=== PATIENT | female | born 1995 | race Caucasian/White ===

== ENCOUNTER 2017-02-10 22:15 | Emergency (ER) | payer MEDICAID ==
[~2017-02-10] VITALS: Ht 157.5 cm; Wt 100.0 kg
[~2017-02-10 22:15] MED LIST: ADVAIR DISKUS 51 DSK IH; ALBUTEROL0.09 MG/A4 IH; ALBUTEROL2.5 MG/3 M IH; ANTIBIOTIC; ANTIBIOTIC O500 U/GM TOP; CIPRO 500MG TA500 MG PO; COLACE 100100 MG/CAP PO; LATUDA80 MG PO; LITHIUM 60600 MG/CAP PO; METFORMIN500 MG PO; MINIPRESS2 MG PO; NAPROSYN500 MG PO; ORTHO TRI-CYCLE1 TA2 PO; PEPCID 20MG TAB20 MG PO; PERPHENAZINE16 M1 PO; PERPHENAZINE4 M1 PO; PREVACID 30MG30 M1 PO; PRILOSEC40 M1 PO; PROZAC40 M1 PO; PROZAC40 MG PO; RISPERDAL1 MG PO; SINGULAIR10 MG PO; SYNTHROID0.05 MG PO; TRILEPTAL600 M1 PO; TYLENOL 500MG500 MG PO; VISTARIL50 M1 PO; VISTARIL50 MG PO; ZOFRAN4 M1 PO; [UNRECOGNIZED DRUG - OTHER] PO
[2017-02-10] MEDS ORDERED: PTU (22:46)
[2017-02-10] MEDS ORDERED: INVEGA SUSTENNA39 MG (22:47)
[2017-02-10] MEDS ORDERED: MALTREXONE (22:48)
[2017-02-10] MEDS ORDERED: BACTRIM DS TAB1 EACH PO (23:53)
[2017-02-11 00:14] VITALS: BP 133/88
== END 2017-02-11 00:07 | disposition home or self-care (01) ==
LOC: ED 22:15
DX: N30.00 Acute cystitis without hematuria (principal); G89.29 Other chronic pain; E05.00 Thyrotoxicosis with diffuse goiter without thyrotoxic crisis or storm; F43.10 Post-traumatic stress disorder, unspecified; F32.9 Major depressive disorder, single episode, unspecified; F90.9 Attention-deficit hyperactivity disorder, unspecified type; K21.9 Gastro-esophageal reflux disease without esophagitis; J45.909 Unspecified asthma, uncomplicated; F20.9 Schizophrenia, unspecified; F17.200 Nicotine dependence, unspecified, uncomplicated; T50.906A Underdosing of unspecified drugs, medicaments and biological substances, initial encounter; Z91.138 Patient's unintentional underdosing of medication regimen for other reason; F42.9 Obsessive-compulsive disorder, unspecified

== ENCOUNTER 2017-02-21 15:52 | Emergency (ER) | payer MEDICAID ==
[~2017-02-21] VITALS: Ht 160 cm; Wt 104.5 kg
[~2017-02-21 15:52] MED LIST changes: +BACTRIM DS TAB1 EACH PO; +INVEGA SUSTENNA39 MG; +MALTREXONE; +PTU
[2017-02-21] MEDS ORDERED: COREG 6.256.25 MG/TA PO (16:03)
[2017-02-21 22:47] VITALS: BP 131/70
== END 2017-02-21 22:47 | disposition home or self-care (01) ==
LOC: ED 15:52
DX: R45.851 Suicidal ideations (principal); F43.10 Post-traumatic stress disorder, unspecified; F60.9 Personality disorder, unspecified; F31.9 Bipolar disorder, unspecified; F29 Unspecified psychosis not due to a substance or known physiological condition; I51.9 Heart disease, unspecified; R00.0 Tachycardia, unspecified

== ENCOUNTER 2017-02-22 14:37 | Emergency (ER) | payer MEDICAID ==
[~2017-02-22] VITALS: Ht 157.5 cm; Wt 104.5 kg
[~2017-02-22 14:37] MED LIST changes: +COREG 6.256.25 MG/TA PO
[2017-02-23 10:18] VITALS: BP 172/69
== END 2017-02-23 10:22 | disposition home or self-care (01) ==
LOC: ED 14:37
DX: T39.1X2A Poisoning by 4-Aminophenol derivatives, intentional self-harm, initial encounter (principal); L50.0 Allergic urticaria; F31.9 Bipolar disorder, unspecified; F43.10 Post-traumatic stress disorder, unspecified; F60.9 Personality disorder, unspecified
CPT/HCPCS: J0132; J0171; J1040; J2550; J2920

== ENCOUNTER 2017-02-24 21:35 | Emergency (ER) | payer MEDICAID ==
[~2017-02-24] VITALS: Ht 157.5 cm; Wt 104.5 kg
[2017-02-24 22:20] VITALS: BP 135/73
== END 2017-02-24 22:20 | disposition home or self-care (01) ==
LOC: ED 21:35
DX: S43.402A Unspecified sprain of left shoulder joint, initial encounter (principal); W01.10XA Fall on same level from slipping, tripping and stumbling with subsequent striking against unspecified object, initial encounter; Y92.009 Unspecified place in unspecified non-institutional (private) residence as the place of occurrence of the external cause

== ENCOUNTER 2017-02-26 12:21 | Emergency (ER) | payer MEDICAID ==
[~2017-02-26] VITALS: Ht 157.5 cm; Wt 104.5 kg
[2017-02-26] MEDS ORDERED: MINIPRESS2 MG PO (12:31)
[2017-02-26] MEDS ORDERED: COREG 6.256.25 MG/TA PO (12:31)
[2017-02-26] MEDS ORDERED: DESYREL 100MG100 MG PO (12:31)
[2017-02-26] MEDS ORDERED: VISTARIL50 M1 PO (12:32)
[2017-02-27 00:02] VITALS: BP 105/66
== END 2017-02-26 23:55 ==
LOC: ED 12:21
DX: F31.9 Bipolar disorder, unspecified (principal); F20.9 Schizophrenia, unspecified; R45.851 Suicidal ideations; J45.909 Unspecified asthma, uncomplicated; F17.210 Nicotine dependence, cigarettes, uncomplicated; F41.9 Anxiety disorder, unspecified; F43.10 Post-traumatic stress disorder, unspecified
CPT/HCPCS: Q0177

== ENCOUNTER 2017-03-04 15:07 | Emergency (ER) | payer MEDICAID ==
[~2017-03-04] VITALS: Ht 157.5 cm; Wt 104.5 kg
[~2017-03-04 15:07] MED LIST changes: +DESYREL 100MG100 MG PO
[2017-03-04] MEDS ORDERED: REVIA50 MG PO (15:21)
[2017-03-04] MEDS ORDERED: VISTARIL50 M1 PO (15:36)
[2017-03-04] MEDS ORDERED: DEBROX15 ML OT (16:03)
[2017-03-04 18:29] VITALS: BP 112/74
== END 2017-03-04 18:28 | disposition home or self-care (01) ==
LOC: ED 15:07
DX: R45.851 Suicidal ideations (principal); F33.1 Major depressive disorder, recurrent, moderate; H61.22 Impacted cerumen, left ear; F41.9 Anxiety disorder, unspecified; F43.10 Post-traumatic stress disorder, unspecified

== ENCOUNTER 2017-03-10 21:31 | Emergency (ER) | payer MEDICAID ==
[~2017-03-10] VITALS: Ht 157.5 cm; Wt 104.5 kg
[~2017-03-10 21:31] MED LIST changes: +DEBROX15 ML OT; +REVIA50 MG PO
[2017-03-10] MEDS ORDERED: INVEGA6 MG PO (21:44)
[2017-03-10 23:08] VITALS: BP 126/77
== END 2017-03-10 23:08 | disposition home or self-care (01) ==
LOC: ED 21:31
DX: R45.851 Suicidal ideations (principal); F43.10 Post-traumatic stress disorder, unspecified; F32.9 Major depressive disorder, single episode, unspecified

== ENCOUNTER 2017-03-21 16:49 | Emergency (ER) | payer MEDICAID ==
[~2017-03-21] VITALS: Ht 157.5 cm; Wt 104.5 kg
[~2017-03-21 16:49] MED LIST changes: +INVEGA6 MG PO
[2017-03-21 18:58] VITALS: BP 142/99
[2017-03-22] MEDS ORDERED: INVEGA SUSTENN156 MG IM (15:55)
[2017-03-22] MEDS ORDERED: PROPYLTHIOURACI50 M1 PO ×2 (15:56→17:38)
== END 2017-03-21 19:30 | disposition home or self-care (01) ==
LOC: ED 16:49
DX: F43.21 Adjustment disorder with depressed mood (principal); E03.9 Hypothyroidism, unspecified; R00.0 Tachycardia, unspecified; F99 Mental disorder, not otherwise specified; Z91.5 Personal history of self-harm

== ENCOUNTER 2017-03-22 15:38 | Emergency (ER) | payer MEDICAID ==
[~2017-03-22] VITALS: Ht 157.5 cm; Wt 114.5 kg
[2017-03-22] MEDS ORDERED: INVEGA SUSTENN156 MG IM (15:55)
[2017-03-22] MEDS ORDERED: PROPYLTHIOURACI50 M1 PO ×2 (15:56→17:38)
[2017-03-22 17:40] VITALS: BP 146/60
== END 2017-03-22 17:41 | disposition home or self-care (01) ==
LOC: ED 15:38
DX: J45.909 Unspecified asthma, uncomplicated (principal); E05.90 Thyrotoxicosis, unspecified without thyrotoxic crisis or storm; F99 Mental disorder, not otherwise specified; R00.0 Tachycardia, unspecified; T38.2X6A Underdosing of antithyroid drugs, initial encounter; T48.6X6A Underdosing of antiasthmatics, initial encounter; Z91.138 Patient's unintentional underdosing of medication regimen for other reason

== ENCOUNTER 2017-04-09 23:21 | Emergency (ER) | payer MEDICAID ==
[~2017-04-09] VITALS: Ht 157.5 cm; Wt 110.0 kg
[~2017-04-09 23:21] MED LIST changes: +INVEGA SUSTENN156 MG IM; +PROAIR HFA0.09 MG/AC IH; +PROPYLTHIOURACI50 M1 PO
[2017-04-10] MEDS ORDERED: CYCLOBENZAPRINE10 M1 PO (00:35)
[2017-04-10 00:47] VITALS: BP 145/71
== END 2017-04-10 00:47 | disposition home or self-care (01) ==
LOC: ED 23:21
DX: M62.838 Other muscle spasm (principal); M62.830 Muscle spasm of back; W19.XXXA Unspecified fall, initial encounter; F99 Mental disorder, not otherwise specified; E07.9 Disorder of thyroid, unspecified; J45.909 Unspecified asthma, uncomplicated; G89.29 Other chronic pain; F17.210 Nicotine dependence, cigarettes, uncomplicated
CPT/HCPCS: J1885; J2360

== ENCOUNTER 2017-04-12 20:52 | Emergency (ER) | payer MEDICAID ==
[~2017-04-12] VITALS: Ht 160 cm; Wt 110.0 kg
[~2017-04-12 20:52] MED LIST changes: +CYCLOBENZAPRINE10 M1 PO
[2017-04-12] MEDS ORDERED: NORCO 325 MG-51 TA1 PO (21:32)
[2017-04-12 21:57] VITALS: BP 128/68
== END 2017-04-12 21:57 | disposition home or self-care (01) ==
LOC: ED 20:52
DX: M25.562 Pain in left knee (principal); G89.29 Other chronic pain; X50.1XXA Overexertion from prolonged static or awkward postures, initial encounter; Y92.480 Sidewalk as the place of occurrence of the external cause; F41.9 Anxiety disorder, unspecified; F32.9 Major depressive disorder, single episode, unspecified; J45.909 Unspecified asthma, uncomplicated; E05.90 Thyrotoxicosis, unspecified without thyrotoxic crisis or storm
CPT/HCPCS: J1885; L1830

== ENCOUNTER → 2017-04-14 | Outpatient (CLI) | payer MEDICAID ==
[2017-04-12 21:57] VITALS: BP 128/68
[~2017-04-14] MED LIST changes: +NORCO 325 MG-51 TA1 PO
== END ==
LOC: RAD 12:00
DX: R33.8 Other retention of urine (principal); M54.9 Dorsalgia, unspecified

== ENCOUNTER 2017-04-21 16:37 | Emergency (ER) | payer MEDICAID ==
[~2017-04-21] VITALS: Ht 157.5 cm; Wt 109.1 kg
[~2017-04-21 16:37] MED LIST changes: -COREG 25MG25 MG/TAB PO; -PROMETHAZINE12.5 M5 PO; -PROPYLTHIOURACI50 MG PO; -VALIUM 2MG T2 MG/TAB PO; -VISTARIL25 M1 PO
[2017-04-21 18:40] VITALS: BP 119/97
== END 2017-04-21 18:36 | disposition home or self-care (01) ==
LOC: ED 16:37
DX: E86.0 Dehydration (principal); E05.00 Thyrotoxicosis with diffuse goiter without thyrotoxic crisis or storm; R00.0 Tachycardia, unspecified; J45.909 Unspecified asthma, uncomplicated; K21.9 Gastro-esophageal reflux disease without esophagitis; F17.210 Nicotine dependence, cigarettes, uncomplicated; R00.2 Palpitations; Z98.890 Other specified postprocedural states; E28.2 Polycystic ovarian syndrome
CPT/HCPCS: J7030

== ENCOUNTER → 2017-04-21 | Day surgery (SDC) | payer MEDICAID ==
[2017-04-12 21:57] VITALS: BP 128/68
[~2017-04-21] MED LIST changes: +COREG 25MG25 MG/TAB PO; +PROMETHAZINE12.5 M5 PO; +PROPYLTHIOURACI50 MG PO; +VALIUM 2MG T2 MG/TAB PO; +VISTARIL25 M1 PO
== END ==
LOC: MSO
DX: D50.9 Iron deficiency anemia, unspecified (principal); Z83.71 Family history of colonic polyps; I10 Essential (primary) hypertension; J45.909 Unspecified asthma, uncomplicated; K21.9 Gastro-esophageal reflux disease without esophagitis; F43.10 Post-traumatic stress disorder, unspecified; F41.9 Anxiety disorder, unspecified; F31.9 Bipolar disorder, unspecified; E07.9 Disorder of thyroid, unspecified
CPT/HCPCS: 00810; J2550; J3010; J7120

== ENCOUNTER 2017-04-24 01:36 | Emergency (ER) | payer MEDICAID ==
[~2017-04-24] VITALS: Ht 157.5 cm; Wt 109.1 kg
[2017-04-24 03:37] VITALS: BP 144/79
[2017-04-24] MEDS ORDERED: PROMETHAZINE12.5 M5 PO (03:38)
[2017-04-25] MEDS ORDERED: VALIUM 2MG T2 MG/TAB PO (00:56)
== END 2017-04-24 03:43 | disposition home or self-care (01) ==
LOC: ED 01:36
DX: R00.0 Tachycardia, unspecified (principal); E05.90 Thyrotoxicosis, unspecified without thyrotoxic crisis or storm; L74.0 Miliaria rubra; R11.0 Nausea; I10 Essential (primary) hypertension; J45.909 Unspecified asthma, uncomplicated; F41.9 Anxiety disorder, unspecified; E28.2 Polycystic ovarian syndrome; F31.9 Bipolar disorder, unspecified; F17.210 Nicotine dependence, cigarettes, uncomplicated

== ENCOUNTER 2017-04-24 21:33 | Emergency (ER) | payer MEDICAID ==
[~2017-04-24] VITALS: Ht 157.5 cm; Wt 109.1 kg
[~2017-04-24 21:33] MED LIST changes: +PROMETHAZINE12.5 M5 PO
[2017-04-25] MEDS ORDERED: VALIUM 2MG T2 MG/TAB PO (00:56)
[2017-04-25 01:03] VITALS: BP 120/80
== END 2017-04-25 01:03 | disposition home or self-care (01) ==
LOC: ED 21:33
DX: H83.01 Labyrinthitis, right ear (principal); R00.2 Palpitations; E05.00 Thyrotoxicosis with diffuse goiter without thyrotoxic crisis or storm; I10 Essential (primary) hypertension; K21.9 Gastro-esophageal reflux disease without esophagitis; F31.9 Bipolar disorder, unspecified; F41.9 Anxiety disorder, unspecified; E28.2 Polycystic ovarian syndrome; D50.9 Iron deficiency anemia, unspecified; F43.10 Post-traumatic stress disorder, unspecified; J45.909 Unspecified asthma, uncomplicated; F17.210 Nicotine dependence, cigarettes, uncomplicated; R47.9 Unspecified speech disturbances

== ENCOUNTER 2017-04-26 00:44 | Emergency (ER) | payer MEDICAID ==
[~2017-04-26] VITALS: Ht 157.5 cm; Wt 109.1 kg
[~2017-04-26 00:44] MED LIST changes: +VALIUM 2MG T2 MG/TAB PO
[2017-04-26 01:02] VITALS: BP 139/98
== END 2017-04-26 02:19 | disposition home or self-care (01) ==
LOC: ED 00:44
DX: H83.01 Labyrinthitis, right ear (principal); R07.89 Other chest pain; F43.9 Reaction to severe stress, unspecified; I10 Essential (primary) hypertension; F31.9 Bipolar disorder, unspecified; F41.9 Anxiety disorder, unspecified; F43.10 Post-traumatic stress disorder, unspecified; E28.2 Polycystic ovarian syndrome; D50.9 Iron deficiency anemia, unspecified; K21.9 Gastro-esophageal reflux disease without esophagitis; E05.00 Thyrotoxicosis with diffuse goiter without thyrotoxic crisis or storm; Z91.19 Patient's noncompliance with other medical treatment and regimen; F17.200 Nicotine dependence, unspecified, uncomplicated

== ENCOUNTER 2017-04-30 18:52 | Emergency (ER) | payer MEDICAID ==
[~2017-04-30] VITALS: Ht 157.5 cm; Wt 110.9 kg
[2017-04-30] MEDS ORDERED: VISTARIL25 M1 PO (19:04)
[2017-04-30] MEDS ORDERED: COREG 25MG25 MG/TAB PO (19:05)
[2017-04-30] MEDS ORDERED: PROPYLTHIOURACI50 MG PO (19:06)
[2017-04-30] MEDS ORDERED: PROPYLTHIOURACI50 M1 PO ×2 (19:06)
[2017-04-30 20:04] LABS: BASO # 0.1 (0.02-0.10); EOS # 0.5 (0.04-0.40); EOS % 4.7 % (1.0-5.0); HEMOGLOBIN 12.3 g/dL (12.5-16.0); LYMPH# 2.8 (1.50-4.00); MEAN CELL VOLUME 79 fl (78-100); MEAN CORPUSCULAR HEMOGLOBIN 26 pg (27-31); MEAN CORPUSCULAR HGB CONC 32 g/dL (33-37); MEAN PLATELET VOLUME 9.2 fl (7.4-10.4); MONO # 0.8 (0.20-0.80); NEU # 6.5 (1.40-6.50); PLATELET COUNT 427 K/mm3 (130-400); RED BLOOD COUNT 4.79 M/mm3 (4.10-5.30); RED CELL DISTRIBUTION WIDTH 17.8 % (11.5-14.5); WHITE BLOOD COUNT 10.7 K/mm3 (4.8-10.8)
[2017-04-30 20:12] LABS: CLUE CELLS NOT OBSERVED (Not Observd)
[2017-04-30 20:35] VITALS: BP 146/91
== END 2017-04-30 20:35 | disposition home or self-care (01) ==
LOC: ED 18:52
PROVIDERS: Nurse Practitioner Primary Care
DX: N93.9 Abnormal uterine and vaginal bleeding, unspecified (principal); R10.2 Pelvic and perineal pain; I10 Essential (primary) hypertension; E05.90 Thyrotoxicosis, unspecified without thyrotoxic crisis or storm; J45.909 Unspecified asthma, uncomplicated; F99 Mental disorder, not otherwise specified
CPT/HCPCS: J1885; Q0111

== ENCOUNTER 2017-05-03 21:06 | Emergency (ER) | payer MEDICAID ==
[~2017-05-03] VITALS: Ht 157.5 cm; Wt 110.9 kg
[~2017-05-03 21:06] MED LIST changes: +COREG 25MG25 MG/TAB PO; +PROPYLTHIOURACI50 MG PO; +VISTARIL25 M1 PO
[2017-05-03 21:16] VITALS: BP 139/72
[2017-05-03 22:20] LABS: EOS # 0.2 (0.04-0.40); EOS % 2.2 % (1.0-5.0); HEMATOCRIT 38.7 % (37.0-47.0); HEMOGLOBIN 12.7 g/dL (12.5-16.0); LYMPH# 2.5 (1.50-4.00); MEAN CELL VOLUME 79 fl (78-100); MEAN CORPUSCULAR HEMOGLOBIN 26 pg (27-31); MEAN CORPUSCULAR HGB CONC 33 g/dL (33-37); MEAN PLATELET VOLUME 9.4 fl (7.4-10.4); MONO # 0.8 (0.20-0.80); NEU # 6.2 (1.40-6.50); PLATELET COUNT 378 K/mm3 (130-400); RED BLOOD COUNT 4.92 M/mm3 (4.10-5.30); RED CELL DISTRIBUTION WIDTH 17.4 % (11.5-14.5); WHITE BLOOD COUNT 9.7 K/mm3 (4.8-10.8)
[2017-05-03 23:16] LABS: ERYTHROCYTE SEDIMENTATION RATE 25 mm/hr (0-20)
== END 2017-05-04 00:30 | disposition home or self-care (01) ==
LOC: ED 21:06
PROVIDERS: Family Medicine
DX: R51 Headache (principal); L08.82 Omphalitis not of newborn; E05.90 Thyrotoxicosis, unspecified without thyrotoxic crisis or storm; F41.9 Anxiety disorder, unspecified; F31.9 Bipolar disorder, unspecified; F43.10 Post-traumatic stress disorder, unspecified; E28.2 Polycystic ovarian syndrome
CPT/HCPCS: J1885; J2360

== ENCOUNTER 2017-05-11 23:41 | Emergency (ER) | payer MEDICAID ==
[~2017-05-11] VITALS: Ht 157.5 cm; Wt 109.1 kg
[2017-05-12 00:45] LABS: EOS # 0.4 (0.04-0.40); EOS % 3.9 % (1.0-5.0); HEMOGLOBIN 13.1 g/dL (12.5-16.0); LYMPH# 3.7 (1.50-4.00); MEAN CELL VOLUME 79 fl (78-100); MEAN CORPUSCULAR HEMOGLOBIN 26 pg (27-31); MEAN CORPUSCULAR HGB CONC 33 g/dL (33-37); MEAN PLATELET VOLUME 9.4 fl (7.4-10.4); MONO # 0.7 (0.20-0.80); NEU # 4.4 (1.40-6.50); PLATELET COUNT 372 K/mm3 (130-400); RED BLOOD COUNT 5.06 M/mm3 (4.10-5.30); RED CELL DISTRIBUTION WIDTH 16.7 % (11.5-14.5); WHITE BLOOD COUNT 9.3 K/mm3 (4.8-10.8)
[2017-05-12] MEDS ORDERED: KETOROLAC10 MG PO (01:03)
[2017-05-12 01:13] VITALS: BP 147/84
== END 2017-05-12 01:13 | disposition home or self-care (01) ==
LOC: ED 23:41
PROVIDERS: Family Medicine
DX: R07.89 Other chest pain (principal); R05 Cough; R07.1 Chest pain on breathing; E05.90 Thyrotoxicosis, unspecified without thyrotoxic crisis or storm; F99 Mental disorder, not otherwise specified

== ENCOUNTER 2017-05-12 14:35 | Emergency (ER) | payer MEDICAID ==
[~2017-05-12] VITALS: Wt 112.1 kg
[~2017-05-12 14:35] MED LIST changes: +KETOROLAC10 MG PO
[2017-05-12 17:03] VITALS: BP 125/72
== END 2017-05-12 17:07 | disposition home or self-care (01) ==
LOC: ED 14:35
DX: G89.29 Other chronic pain (principal); M54.89 Other dorsalgia; I10 Essential (primary) hypertension; E05.00 Thyrotoxicosis with diffuse goiter without thyrotoxic crisis or storm; F41.9 Anxiety disorder, unspecified; F31.9 Bipolar disorder, unspecified; F43.10 Post-traumatic stress disorder, unspecified; F17.200 Nicotine dependence, unspecified, uncomplicated

== ENCOUNTER → 2017-05-15 | Outpatient (CLI) | payer MEDICAID ==
[2017-05-12 17:03] VITALS: BP 125/72
== END ==
LOC: RAD 08:09
DX: R10.2 Pelvic and perineal pain (principal); N93.9 Abnormal uterine and vaginal bleeding, unspecified; N92.6 Irregular menstruation, unspecified

== ENCOUNTER 2017-06-23 10:26 | Emergency (ER) | payer MEDICAID ==
[~2017-06-23] VITALS: Ht 157.5 cm; Wt 109.1 kg
[2017-06-23] MEDS ORDERED: ZITHROMAX 250M250 MG PO (10:50)
[2017-06-23] MEDS ORDERED: PREDNISONE20 M1 PO (10:50)
[2017-06-23] MEDS ORDERED: IPRATROPIUM BROM3 M1 IH (10:50)
[2017-06-23 11:02] VITALS: BP 127/77
== END 2017-06-23 11:02 | disposition home or self-care (01) ==
LOC: ED 10:26
DX: J20.9 Acute bronchitis, unspecified (principal); F17.200 Nicotine dependence, unspecified, uncomplicated; J45.909 Unspecified asthma, uncomplicated

== ENCOUNTER 2017-06-23 13:09 | Emergency (ER) | payer OTHER ==
[~2017-06-23] VITALS: Wt 115.5 kg
[~2017-06-23 13:09] MED LIST changes: +IPRATROPIUM BROM3 M1 IH; +PREDNISONE20 M1 PO; +ZITHROMAX 250M250 MG PO
[2017-06-23 14:46] VITALS: BP 136/82
== END 2017-06-23 15:12 | disposition home or self-care (01) ==
LOC: ED 13:09
DX: S93.402A Sprain of unspecified ligament of left ankle, initial encounter (principal); S83.91XA Sprain of unspecified site of right knee, initial encounter; X50.1XXA Overexertion from prolonged static or awkward postures, initial encounter; W10.1XXA Fall (on)(from) sidewalk curb, initial encounter; Y92.481 Parking lot as the place of occurrence of the external cause; F17.200 Nicotine dependence, unspecified, uncomplicated; J45.909 Unspecified asthma, uncomplicated; Z88.7 Allergy status to serum and vaccine; Z88.8 Allergy status to other drugs, medicaments and biological substances

== ENCOUNTER 2017-08-14 11:53 | Emergency (ER) | payer MEDICAID ==
[~2017-08-14] VITALS: Ht 160 cm; Wt 116.4 kg
[2017-08-14] MEDS ORDERED: RISPERIDONE1 M2 (11:58)
[2017-08-14] MEDS ORDERED: QUETIAPINE FUMA25 M2 PO (11:58)
[2017-08-14 12:47] LABS: EOS # 0.4 (0.04-0.40); EOS % 3.6 % (1.0-5.0); HEMATOCRIT 41.9 % (37.0-47.0); HEMOGLOBIN 13.5 g/dL (12.5-16.0); LYMPH# 3.1 (1.50-4.00); MEAN CELL VOLUME 83 fl (78-100); MEAN CORPUSCULAR HEMOGLOBIN 27 pg (27-31); MEAN CORPUSCULAR HGB CONC 32 g/dL (33-37); MEAN PLATELET VOLUME 9.4 fl (7.4-10.4); MONO # 0.7 (0.20-0.80); NEU # 7.3 (1.40-6.50); PLATELET COUNT 402 K/mm3 (130-400); RED BLOOD COUNT 5.04 M/mm3 (4.10-5.30); RED CELL DISTRIBUTION WIDTH 15.4 % (11.5-14.5); WHITE BLOOD COUNT 11.6 K/mm3 (4.8-10.8)
[2017-08-14 13:00] LABS: ALBUMIN 4.2 g/dL (3.5-5.0); BUN/CREATININE RATIO 19.7 (6.0-26.0); CALCIUM 9.6 mg/dL (8.4-10.2); POTASSIUM 3.7 mmol/L (3.6-5.0); TOTAL BILIRUBIN 0.5 mg/dL (0.2-1.3); TOTAL PROTEIN 7.6 g/dL (6.3-8.2)
[2017-08-14 13:00] LABS: URINE APPEARANCE HAZY; URINE BILIRUBIN NEGATIVE (NEGATIVE); URINE BLOOD NEGATIVE (NEGATIVE); URINE COLOR YELLOW; URINE GLUCOSE NEGATIVE (NEGATIVE); URINE KETONE NEGATIVE (NEGATIVE); URINE LEUKOCYTE ESTERASE NEGATIVE (NEGATIVE); URINE MUCUS PRESENT (NOT PRESENT); URINE NITRATE NEGATIVE (NEGATIVE); URINE PROTEIN(semi-quant) NEGATIVE (NEGATIVE); URINE UROBILINOGEN NORMAL (NORMAL)
[2017-08-14] MEDS ORDERED: ZOFRAN ODT8 M1 PO (13:30)
[2017-08-14] MEDS ORDERED: FLAGYL500 M1 PO (13:30)
[2017-08-14 13:39] VITALS: BP 160/98
== END 2017-08-14 13:39 | disposition home or self-care (01) ==
LOC: ED 11:53
PROVIDERS: Physician Assistant
DX: N76.0 Acute vaginitis (principal); B96.89 Other specified bacterial agents as the cause of diseases classified elsewhere; R11.2 Nausea with vomiting, unspecified; R10.13 Epigastric pain; Z88.7 Allergy status to serum and vaccine; Z88.8 Allergy status to other drugs, medicaments and biological substances; F17.210 Nicotine dependence, cigarettes, uncomplicated; R00.0 Tachycardia, unspecified; F41.9 Anxiety disorder, unspecified; F43.10 Post-traumatic stress disorder, unspecified; F31.9 Bipolar disorder, unspecified

== ENCOUNTER 2017-08-26 01:06 | Emergency (ER) | payer MEDICAID ==
[~2017-08-26] VITALS: Ht 157.5 cm; Wt 113.6 kg
[~2017-08-26 01:06] MED LIST changes: +FLAGYL500 M1 PO; +QUETIAPINE FUMA25 M2 PO; +RISPERIDONE1 M2; +ZOFRAN ODT8 M1 PO
[2017-08-26 01:40] LABS: STREP SCREEN NEGATIVE (NEGATIVE)
[2017-08-26] MEDS ORDERED: AUGMENTIN 875-1 EAC1 PO (01:58)
[2017-08-26] MEDS ORDERED: MUCINEX 60600 MG/TA1 PO (01:58)
[2017-08-26 02:45] VITALS: BP 110/76
== END 2017-08-26 02:45 | disposition home or self-care (01) ==
LOC: ED 01:06
PROVIDERS: Nurse Practitioner Primary Care
DX: J20.9 Acute bronchitis, unspecified (principal); F17.200 Nicotine dependence, unspecified, uncomplicated; F99 Mental disorder, not otherwise specified; Z88.7 Allergy status to serum and vaccine; Z88.8 Allergy status to other drugs, medicaments and biological substances

== ENCOUNTER 2017-09-24 14:10 | Emergency (ER) | payer MEDICAID ==
[~2017-09-24] VITALS: Ht 160 cm; Wt 120.9 kg
[~2017-09-24 14:10] MED LIST changes: +AUGMENTIN 875-1 EAC1 PO; +MUCINEX 60600 MG/TA1 PO
[2017-09-24] MEDS ORDERED: DESYREL 100MG100 MG PO (14:22)
[2017-09-24] MEDS ORDERED: HYDROXYZINE HYD50 M1 PO (14:22)
[2017-09-24] MEDS ORDERED: CYCLOBENZAPRINE10 M1 PO (14:23)
[2017-09-24] MEDS ORDERED: TESSALON PERLE100 M1 PO (15:06)
[2017-09-24] MEDS ORDERED: MUCINEX 60600 MG/TA1 PO (15:06)
[2017-09-24 15:19] VITALS: BP 165/88
== END 2017-09-24 15:16 | disposition home or self-care (01) ==
LOC: ED 14:10
DX: M25.562 Pain in left knee (principal); M25.362 Other instability, left knee; J06.9 Acute upper respiratory infection, unspecified; F99 Mental disorder, not otherwise specified; Z88.7 Allergy status to serum and vaccine; Z88.8 Allergy status to other drugs, medicaments and biological substances

== ENCOUNTER 2017-11-03 12:21 | Emergency (ER) | payer MEDICAID ==
[~2017-11-03] VITALS: Ht 157.5 cm; Wt 118.2 kg
[~2017-11-03 12:21] MED LIST changes: +HYDROXYZINE HYD50 M1 PO; +TESSALON PERLE100 M1 PO
[2017-11-03] MEDS ORDERED: PANTOPRAZOLE SO20 M1 PO (12:29)
[2017-11-03] MEDS ORDERED: NORTREL 35 MCG-1 TA1 PO (12:29)
[2017-11-03] MEDS ORDERED: DILTIAZEM HCL120 M1 PO (12:29)
[2017-11-03] MEDS ORDERED: VRAYLAR3 MG PO (12:29)
[2017-11-03] MEDS ORDERED: DULOXETINE30 MG PO (12:30)
[2017-11-03] MEDS ORDERED: ZOFRAN ODT4 MG PO (13:34)
[2017-11-03 16:38] VITALS: BP 136/85
== END 2017-11-03 16:30 | disposition home or self-care (01) ==
LOC: ED 12:21
DX: G89.18 Other acute postprocedural pain (principal); M25.562 Pain in left knee; I10 Essential (primary) hypertension; F17.200 Nicotine dependence, unspecified, uncomplicated; Z88.7 Allergy status to serum and vaccine; Z88.8 Allergy status to other drugs, medicaments and biological substances; F99 Mental disorder, not otherwise specified

== ENCOUNTER 2017-11-10 13:53 | Emergency (ER) | payer MEDICAID ==
[~2017-11-10 13:53] MED LIST changes: +DILTIAZEM HCL120 M1 PO; +DULOXETINE30 MG PO; +NORTREL 35 MCG-1 TA1 PO; +PANTOPRAZOLE SO20 M1 PO; +VRAYLAR3 MG PO; +ZOFRAN ODT4 MG PO
[2017-11-10] MEDS ORDERED: NORCO 325 MG-7.1 TA1 PO (14:19)
[2017-11-10 14:59] LABS: EOS # 0.3 (0.04-0.40); EOS % 2.6 % (1.0-5.0); HEMATOCRIT 39.3 % (37.0-47.0); HEMOGLOBIN 12.7 g/dL (12.5-16.0); LYMPH# 2.5 (1.50-4.00); MEAN CELL VOLUME 87 fl (78-100); MEAN CORPUSCULAR HEMOGLOBIN 28 pg (27-31); MEAN CORPUSCULAR HGB CONC 32 g/dL (33-37); MEAN PLATELET VOLUME 9.2 fl (7.4-10.4); MONO # 0.7 (0.20-0.80); NEU # 6.1 (1.40-6.50); PLATELET COUNT 336 K/mm3 (130-400); RED BLOOD COUNT 4.53 M/mm3 (4.10-5.30); RED CELL DISTRIBUTION WIDTH 14.8 % (11.5-14.5); WHITE BLOOD COUNT 9.6 K/mm3 (4.8-10.8)
[2017-11-10 15:06] LABS: BUN/CREATININE RATIO 14.2 (6.0-26.0); CALCIUM 8.9 mg/dL (8.4-10.2); POTASSIUM 3.5 mmol/L (3.6-5.0)
[2017-11-10 15:16] LABS: URINE APPEARANCE CLEAR; URINE BILIRUBIN NEGATIVE (NEGATIVE); URINE COLOR YELLOW; URINE GLUCOSE NEGATIVE (NEGATIVE); URINE KETONE NEGATIVE (NEGATIVE); URINE NITRATE NEGATIVE (NEGATIVE); URINE PROTEIN(semi-quant) NEGATIVE (NEGATIVE); URINE UROBILINOGEN NORMAL (NORMAL)
[2017-11-10 15:17] LABS: URINE BLOOD TRACE (NEGATIVE); URINE LEUKOCYTE ESTERASE NEGATIVE (NEGATIVE)
[2017-11-10] MEDS ORDERED: MIRALAX17 GM PO (15:22)
[2017-11-10] MEDS ORDERED: ZOFRAN ODT4 MG PO (15:22)
[2017-11-10 16:24] VITALS: BP 135/85
== END 2017-11-10 18:24 | disposition home or self-care (01) ==
LOC: ED 13:53
PROVIDERS: Nurse Practitioner Primary Care
DX: K59.00 Constipation, unspecified (principal); R11.2 Nausea with vomiting, unspecified; R51 Headache; M25.562 Pain in left knee; F17.200 Nicotine dependence, unspecified, uncomplicated; Z88.7 Allergy status to serum and vaccine; Z88.8 Allergy status to other drugs, medicaments and biological substances
CPT/HCPCS: J1200; J1885; J2405; J7030

== ENCOUNTER 2018-01-02 12:28 | Emergency (ER) | payer MEDICAID ==
[~2018-01-02] VITALS: Ht 157.5 cm; Wt 116.4 kg
[~2018-01-02 12:28] MED LIST changes: +MIRALAX17 GM PO; +NORCO 325 MG-7.1 TA1 PO
[2018-01-02] MEDS ORDERED: PROTONIX TR40 M1 PO (12:41)
[2018-01-02] MEDS ORDERED: ALBUTEROL2.5 MG/3 M IH (12:42)
[2018-01-02] MEDS ORDERED: ABILIFY MA400 MG/Via IM (12:42)
[2018-01-02] MEDS ORDERED: PROAIR HFA0.09 MG/AC IH (12:42)
[2018-01-02 14:00] VITALS: BP 137/78
== END 2018-01-02 14:04 | disposition home or self-care (01) ==
LOC: ED 12:28
DX: M79.641 Pain in right hand (principal); M79.631 Pain in right forearm; M25.531 Pain in right wrist; W19.XXXA Unspecified fall, initial encounter; Y92.511 Restaurant or cafe as the place of occurrence of the external cause

== ENCOUNTER 2018-02-20 13:25 | Emergency (ER) | payer MEDICAID ==
[~2018-02-20] VITALS: Ht 157.5 cm; Wt 118.2 kg
[~2018-02-20 13:25] MED LIST changes: +ABILIFY MA400 MG/Via IM; +PROTONIX TR40 M1 PO
[2018-02-20] MEDS ORDERED: MIRTAZAPINE30 MG PO (13:40)
[2018-02-20 15:19] LABS: BASO # 0.1 (0.02-0.10); EOS # 0.5 (0.04-0.40); EOS % 4.5 % (1.0-5.0); HEMATOCRIT 41.3 % (37.0-47.0); HEMOGLOBIN 13.5 g/dL (12.5-16.0); LYMPH# 3.2 (1.50-4.00); MEAN CELL VOLUME 87 fl (78-100); MEAN CORPUSCULAR HEMOGLOBIN 28 pg (27-31); MEAN CORPUSCULAR HGB CONC 33 g/dL (33-37); MEAN PLATELET VOLUME 9.5 fl (7.4-10.4); MONO # 0.9 (0.20-0.80); NEU # 6.2 (1.40-6.50); PLATELET COUNT 390 K/mm3 (130-400); RED BLOOD COUNT 4.77 M/mm3 (4.10-5.30); RED CELL DISTRIBUTION WIDTH 14.1 % (11.5-14.5); WHITE BLOOD COUNT 10.8 K/mm3 (4.8-10.8)
[2018-02-20 15:32] LABS: ALBUMIN 3.8 g/dL (3.5-5.0); BUN/CREATININE RATIO 16.9 (6.0-26.0); CALCIUM 9.1 mg/dL (8.4-10.2); POTASSIUM 4.2 mmol/L (3.6-5.0); TOTAL BILIRUBIN 0.2 mg/dL (0.2-1.3)
[2018-02-20 15:56] LABS: PH-URINE 7.5 (5.0 - 8.0); URINE APPEARANCE CLEAR; URINE BILIRUBIN NEGATIVE (NEGATIVE); URINE BLOOD NEGATIVE (NEGATIVE); URINE COLOR YELLOW; URINE GLUCOSE NEGATIVE (NEGATIVE); URINE KETONE NEGATIVE (NEGATIVE); URINE LEUKOCYTE ESTERASE TRACE (NEGATIVE); URINE NITRATE NEGATIVE (NEGATIVE); URINE PROTEIN(semi-quant) NEGATIVE (NEGATIVE); URINE UROBILINOGEN NORMAL (NORMAL)
[2018-02-20] MEDS ORDERED: ZOFRAN4 M2 PO ×2 (16:08→16:18)
[2018-02-20 16:18] VITALS: BP 145/92
== END 2018-02-20 16:16 | disposition home or self-care (01) ==
LOC: ED 13:25
PROVIDERS: Nurse Practitioner
DX: A08.4 Viral intestinal infection, unspecified (principal); R30.0 Dysuria; F17.210 Nicotine dependence, cigarettes, uncomplicated; J45.909 Unspecified asthma, uncomplicated; Z90.49 Acquired absence of other specified parts of digestive tract; E28.2 Polycystic ovarian syndrome; Z79.899 Other long term (current) drug therapy

== ENCOUNTER 2018-02-25 21:09 | Emergency (ER) | payer MEDICAID ==
[~2018-02-25] VITALS: Ht 157.5 cm; Wt 100.0 kg
[~2018-02-25 21:09] MED LIST changes: +MIRTAZAPINE30 MG PO; +ZOFRAN4 M2 PO
[2018-02-25 21:45] LABS: EOS # 0.5 (0.04-0.40); HEMATOCRIT 40.9 % (37.0-47.0); HEMOGLOBIN 13.4 g/dL (12.5-16.0); LYMPH# 3.7 (1.50-4.00); MEAN CELL VOLUME 86 fl (78-100); MEAN CORPUSCULAR HEMOGLOBIN 28 pg (27-31); MEAN CORPUSCULAR HGB CONC 33 g/dL (33-37); MEAN PLATELET VOLUME 9.2 fl (7.4-10.4); MONO # 0.8 (0.20-0.80); NEU # 7.2 (1.40-6.50); PLATELET COUNT 390 K/mm3 (130-400); RED BLOOD COUNT 4.76 M/mm3 (4.10-5.30); RED CELL DISTRIBUTION WIDTH 14.3 % (11.5-14.5); WHITE BLOOD COUNT 12.2 K/mm3 (4.8-10.8)
[2018-02-25 21:56] LABS: BUN/CREATININE RATIO 13.5 (6.0-26.0); POTASSIUM 3.7 mmol/L (3.6-5.0)
[2018-02-25 22:31] LABS: URINE APPEARANCE HAZY; URINE COLOR YELLOW
[2018-02-25 22:32] LABS: URINE BILIRUBIN NEGATIVE (NEGATIVE); URINE BLOOD NEGATIVE (NEGATIVE); URINE GLUCOSE NEGATIVE (NEGATIVE); URINE KETONE NEGATIVE (NEGATIVE); URINE LEUKOCYTE ESTERASE TRACE (NEGATIVE); URINE MUCUS PRESENT (NOT PRESENT); URINE NITRATE NEGATIVE (NEGATIVE); URINE PROTEIN(semi-quant) NEGATIVE (NEGATIVE); URINE UROBILINOGEN NORMAL (NORMAL)
[2018-02-25] MEDS ORDERED: BACTRIM DS TAB1 EACH PO (22:45)
[2018-02-25 22:48] VITALS: BP 147/82
== END 2018-02-25 22:48 | disposition home or self-care (01) ==
LOC: ED 21:09
PROVIDERS: Physician Assistant
DX: R07.9 Chest pain, unspecified (principal); N39.0 Urinary tract infection, site not specified; R00.0 Tachycardia, unspecified; E05.00 Thyrotoxicosis with diffuse goiter without thyrotoxic crisis or storm; T44.7X6A Underdosing of beta-adrenoreceptor antagonists, initial encounter; Z91.120 Patient's intentional underdosing of medication regimen due to financial hardship; J45.909 Unspecified asthma, uncomplicated; F25.9 Schizoaffective disorder, unspecified; F17.210 Nicotine dependence, cigarettes, uncomplicated; Z79.899 Other long term (current) drug therapy

== ENCOUNTER 2018-03-02 16:13 | Emergency (ER) | payer MEDICAID ==
[2018-03-02] MEDS ORDERED: BISOPROLOL FUMA10 M1 PO (16:32)
[2018-03-02] MEDS ORDERED: BACTRIM DS 8001 TAB PO (16:33)
[2018-03-02 17:29] LABS: EOS # 0.4 (0.04-0.40); EOS % 3.9 % (1.0-5.0); HEMATOCRIT 42.3 % (37.0-47.0); HEMOGLOBIN 13.8 g/dL (12.5-16.0); LYMPH# 3.2 (1.50-4.00); MEAN CELL VOLUME 87 fl (78-100); MEAN CORPUSCULAR HEMOGLOBIN 28 pg (27-31); MEAN CORPUSCULAR HGB CONC 33 g/dL (33-37); MEAN PLATELET VOLUME 9.4 fl (7.4-10.4); MONO # 0.7 (0.20-0.80); NEU # 6.6 (1.40-6.50); PLATELET COUNT 410 K/mm3 (130-400); RED BLOOD COUNT 4.89 M/mm3 (4.10-5.30); RED CELL DISTRIBUTION WIDTH 14.2 % (11.5-14.5)
[2018-03-02 17:38] LABS: ALT/SGPT 40 U/L (9-52); AST-SGOT 36 U/L (14-36); CALCIUM 9.3 mg/dL (8.4-10.2); CARBON DIOXIDE 28 mmol/L (22-30); GLUCOSE 100 mg/dL (65-105); SODIUM 141 mmol/L (137-145); TOTAL BILIRUBIN 0.4 mg/dL (0.2-1.3); TOTAL PROTEIN 7.5 g/dL (6.3-8.2)
[2018-03-02 18:44] LABS: ACETAMINOPHEN < 4 ug/mL (10-30); ALCOHOL IN-HOUSE < 10 mg/dL
[2018-03-02 19:28] VITALS: BP 134/83
== END 2018-03-02 19:28 | disposition home or self-care (01) ==
LOC: ED 16:13
PROVIDERS: Nurse Practitioner Primary Care
DX: F32.9 Major depressive disorder, single episode, unspecified (principal); Z79.899 Other long term (current) drug therapy

== ENCOUNTER 2018-03-03 16:28 | Emergency (ER) | payer MEDICAID ==
[~2018-03-03 16:28] MED LIST changes: +BACTRIM DS 8001 TAB PO; +BISOPROLOL FUMA10 M1 PO
[2018-03-03 17:17] LABS: BASO # 0.1 (0.02-0.10); EOS # 0.4 (0.04-0.40); HEMATOCRIT 41.4 % (37.0-47.0); HEMOGLOBIN 13.3 g/dL (12.5-16.0); LYMPH# 2.8 (1.50-4.00); MEAN CELL VOLUME 86 fl (78-100); MEAN CORPUSCULAR HEMOGLOBIN 28 pg (27-31); MEAN CORPUSCULAR HGB CONC 32 g/dL (33-37); MEAN PLATELET VOLUME 9.4 fl (7.4-10.4); MONO # 0.7 (0.20-0.80); PLATELET COUNT 407 K/mm3 (130-400); RED BLOOD COUNT 4.79 M/mm3 (4.10-5.30); RED CELL DISTRIBUTION WIDTH 14.2 % (11.5-14.5)
[2018-03-03 17:30] LABS: ALT/SGPT 45 U/L (9-52); AST-SGOT 31 U/L (14-36); CALCIUM 9.6 mg/dL (8.4-10.2); CARBON DIOXIDE 27 mmol/L (22-30); GLUCOSE 94 mg/dL (65-105); POTASSIUM 3.7 mmol/L (3.6-5.0); SODIUM 140 mmol/L (137-145); TOTAL BILIRUBIN 0.4 mg/dL (0.2-1.3); TOTAL PROTEIN 7.2 g/dL (6.3-8.2)
[2018-03-03 17:35] LABS: ACETAMINOPHEN < 4 ug/mL (10-30); ALCOHOL IN-HOUSE < 10 mg/dL
[2018-03-04 01:44] VITALS: BP 106/65
== END 2018-03-04 01:44 | disposition home or self-care (01) ==
LOC: ED 16:28
PROVIDERS: Nurse Practitioner Primary Care
DX: T44.7X2A Poisoning by beta-adrenoreceptor antagonists, intentional self-harm, initial encounter (principal); F31.9 Bipolar disorder, unspecified; R44.0 Auditory hallucinations; I10 Essential (primary) hypertension; Z91.5 Personal history of self-harm; F17.200 Nicotine dependence, unspecified, uncomplicated; R11.0 Nausea; Z79.899 Other long term (current) drug therapy
CPT/HCPCS: J7030

== ENCOUNTER 2018-03-09 17:20 | Emergency (ER) | payer MEDICAID ==
[2018-03-09 18:03] LABS: EOS # 0.4 (0.04-0.40); EOS % 3.4 % (1.0-5.0); HEMATOCRIT 42.1 % (37.0-47.0); HEMOGLOBIN 13.5 g/dL (12.5-16.0); LYMPH# 4.2 (1.50-4.00); MEAN CELL VOLUME 86 fl (78-100); MEAN CORPUSCULAR HEMOGLOBIN 28 pg (27-31); MEAN CORPUSCULAR HGB CONC 32 g/dL (33-37); MEAN PLATELET VOLUME 9.6 fl (7.4-10.4); MONO # 0.8 (0.20-0.80); NEU # 5.8 (1.40-6.50); PLATELET COUNT 361 K/mm3 (130-400); RED BLOOD COUNT 4.89 M/mm3 (4.10-5.30); RED CELL DISTRIBUTION WIDTH 14.2 % (11.5-14.5); WHITE BLOOD COUNT 11.3 K/mm3 (4.8-10.8)
[2018-03-09 18:14] LABS: PROTHROMBIN TIME 9.7 SECONDS (9.0-12.0)
[2018-03-09 18:37] LABS: ALBUMIN 3.9 g/dL (3.5-5.0); ALT/SGPT 66 U/L (9-52); AST-SGOT 43 U/L (14-36); CALCIUM 9.3 mg/dL (8.4-10.2); CARBON DIOXIDE 22 mmol/L (22-30); GLUCOSE 128 mg/dL (65-105); POTASSIUM 3.7 mmol/L (3.6-5.0); SODIUM 139 mmol/L (137-145); TOTAL BILIRUBIN 0.5 mg/dL (0.2-1.3)
[2018-03-09 18:38] LABS: ACETAMINOPHEN 230 ug/mL (10-30); ALCOHOL IN-HOUSE < 10 mg/dL
[2018-03-09 18:38] LABS: URINE APPEARANCE HAZY; URINE BILIRUBIN NEGATIVE (NEGATIVE); URINE BLOOD NEGATIVE (NEGATIVE); URINE COLOR YELLOW; URINE GLUCOSE NEGATIVE (NEGATIVE); URINE KETONE NEGATIVE (NEGATIVE); URINE LEUKOCYTE ESTERASE NEGATIVE (NEGATIVE); URINE NITRATE NEGATIVE (NEGATIVE); URINE PROTEIN(semi-quant) TRACE mg/dL (NEGATIVE); URINE UROBILINOGEN NORMAL (NORMAL)
[2018-03-09 22:28] VITALS: BP 140/84
== END 2018-03-09 22:28 | disposition short-term general hospital (02) ==
LOC: ED 17:20
PROVIDERS: Nurse Practitioner
DX: T39.1X2A Poisoning by 4-Aminophenol derivatives, intentional self-harm, initial encounter (principal); F32.9 Major depressive disorder, single episode, unspecified; R00.0 Tachycardia, unspecified; F41.9 Anxiety disorder, unspecified; F43.10 Post-traumatic stress disorder, unspecified; F17.200 Nicotine dependence, unspecified, uncomplicated; Z79.899 Other long term (current) drug therapy
CPT/HCPCS: J0132; J1200; J2405; J2550

== ENCOUNTER 2018-03-17 17:38 | Emergency (ER) | payer MEDICAID ==
[~2018-03-17] VITALS: Wt 121.6 kg
[2018-03-17 18:46] LABS: EOS # 0.4 (0.04-0.40); EOS % 2.4 % (1.0-5.0); HEMATOCRIT 39.2 % (37.0-47.0); HEMOGLOBIN 13.1 g/dL (12.5-16.0); LYMPH# 3.1 (1.50-4.00); MEAN CELL VOLUME 85 fl (78-100); MEAN CORPUSCULAR HEMOGLOBIN 28 pg (27-31); MEAN CORPUSCULAR HGB CONC 33 g/dL (33-37); MEAN PLATELET VOLUME 9.3 fl (7.4-10.4); MONO # 0.9 (0.20-0.80); PLATELET COUNT 377 K/mm3 (130-400); RED BLOOD COUNT 4.61 M/mm3 (4.10-5.30); RED CELL DISTRIBUTION WIDTH 13.6 % (11.5-14.5); WHITE BLOOD COUNT 14.8 K/mm3 (4.8-10.8)
[2018-03-17 18:53] LABS: NEU # 10.4 (1.40-6.50)
[2018-03-17 18:56] LABS: ALBUMIN 3.9 g/dL (3.5-5.0); ALT/SGPT 31 U/L (9-52); AST-SGOT 19 U/L (14-36); CALCIUM 9.3 mg/dL (8.4-10.2); CARBON DIOXIDE 23 mmol/L (22-30); GLUCOSE 134 mg/dL (65-105); POTASSIUM 3.5 mmol/L (3.6-5.0); SODIUM 138 mmol/L (137-145); TOTAL BILIRUBIN 0.2 mg/dL (0.2-1.3); TOTAL PROTEIN 6.8 g/dL (6.3-8.2)
[2018-03-17 18:59] LABS: ALCOHOL IN-HOUSE < 10 mg/dL
[2018-03-17 19:32] LABS: PH-URINE 5.5 (5.0 - 8.0); URINE APPEARANCE CLEAR; URINE BILIRUBIN NEGATIVE (NEGATIVE); URINE BLOOD NEGATIVE (NEGATIVE); URINE COLOR YELLOW; URINE GLUCOSE NEGATIVE (NEGATIVE); URINE KETONE NEGATIVE (NEGATIVE); URINE LEUKOCYTE ESTERASE NEGATIVE (NEGATIVE); URINE NITRATE NEGATIVE (NEGATIVE); URINE PROTEIN(semi-quant) NEGATIVE (NEGATIVE); URINE UROBILINOGEN NORMAL (NORMAL)
[2018-03-17 22:05] VITALS: BP 110/79
== END 2018-03-17 22:05 | disposition home or self-care (01) ==
LOC: ED 17:38
PROVIDERS: Physician Assistant
DX: T39.1X2A Poisoning by 4-Aminophenol derivatives, intentional self-harm, initial encounter (principal); F32.9 Major depressive disorder, single episode, unspecified; F41.9 Anxiety disorder, unspecified; Z91.5 Personal history of self-harm; Z79.899 Other long term (current) drug therapy; J45.909 Unspecified asthma, uncomplicated
CPT/HCPCS: J7030

== ENCOUNTER 2018-03-24 21:34 | Emergency (ER) | payer MEDICAID ==
[~2018-03-24] VITALS: Ht 157.5 cm; Wt 119.5 kg
[2018-03-24 22:33] LABS: BASO # 0.1 (0.02-0.10); EOS # 0.4 (0.04-0.40); HEMATOCRIT 39.8 % (37.0-47.0); HEMOGLOBIN 13.5 g/dL (12.5-16.0); LYMPH# 3.8 (1.50-4.00); MEAN CELL VOLUME 85 fl (78-100); MEAN CORPUSCULAR HEMOGLOBIN 29 pg (27-31); MEAN CORPUSCULAR HGB CONC 34 g/dL (33-37); MEAN PLATELET VOLUME 9.5 fl (7.4-10.4); MONO # 0.9 (0.20-0.80); NEU # 8.1 (1.40-6.50); PLATELET COUNT 438 K/mm3 (130-400); RED BLOOD COUNT 4.71 M/mm3 (4.10-5.30); RED CELL DISTRIBUTION WIDTH 13.6 % (11.5-14.5); WHITE BLOOD COUNT 13.2 K/mm3 (4.8-10.8)
[2018-03-24 22:46] LABS: POTASSIUM 3.5 mmol/L (3.6-5.0); TOTAL PROTEIN 6.8 g/dL (6.3-8.2)
[2018-03-24 22:55] LABS: ALBUMIN 3.9 g/dL (3.5-5.0); CALCIUM 9.5 mg/dL (8.4-10.2); TOTAL BILIRUBIN 0.6 mg/dL (0.2-1.3)
[2018-03-24 22:56] LABS: CKMB ISOENZYME 0.3 ng/mL (0.6-3.5)
[2018-03-24 23:08] LABS: TROPONIN-I < 0.03 ng/mL (0.00-0.06)
[2018-03-24 23:58] LABS: URINE APPEARANCE CLOUDY; URINE BILIRUBIN NEGATIVE (NEGATIVE); URINE BLOOD 250 ery/uL (NEGATIVE); URINE COLOR YELLOW; URINE GLUCOSE NEGATIVE (NEGATIVE); URINE KETONE NEGATIVE (NEGATIVE); URINE LEUKOCYTE ESTERASE 1+ (NEGATIVE); URINE NITRATE NEGATIVE (NEGATIVE); URINE PROTEIN(semi-quant) TRACE mg/dL (NEGATIVE); URINE UROBILINOGEN NORMAL (NORMAL)
[2018-03-25 00:03] LABS: URINE MUCUS PRESENT (NOT PRESENT)
[2018-03-25 01:21] LABS: URINE APPEARANCE CLOUDY; URINE BILIRUBIN NEGATIVE (NEGATIVE); URINE BLOOD 250 ery/uL (NEGATIVE); URINE COLOR YELLOW; URINE GLUCOSE NEGATIVE (NEGATIVE); URINE KETONE NEGATIVE (NEGATIVE); URINE LEUKOCYTE ESTERASE 1+ (NEGATIVE); URINE NITRATE NEGATIVE (NEGATIVE); URINE PROTEIN(semi-quant) TRACE mg/dL (NEGATIVE); URINE UROBILINOGEN NORMAL (NORMAL)
[2018-03-25 01:22] LABS: URINE MUCUS PRESENT (NOT PRESENT); URINE WBC 16-30 /hpf (0-3)
[2018-03-25 03:27] VITALS: BP 114/62
[2018-03-25 04:44] LABS: CLUE CELLS NOT OBSERVED (Not Observd)
[2018-03-26 06:09] LABS: GRAM STAIN AMS
== END 2018-03-25 06:15 | disposition home or self-care (01) ==
LOC: ED 21:34
PROVIDERS: Nurse Practitioner Family
DX: R07.89 Other chest pain (principal); B34.9 Viral infection, unspecified; R11.2 Nausea with vomiting, unspecified; R19.7 Diarrhea, unspecified; R10.84 Generalized abdominal pain; R10.2 Pelvic and perineal pain; I10 Essential (primary) hypertension; K21.9 Gastro-esophageal reflux disease without esophagitis; J45.909 Unspecified asthma, uncomplicated; F17.200 Nicotine dependence, unspecified, uncomplicated; Z91.5 Personal history of self-harm
CPT/HCPCS: J1885; J2405; J7030; Q0111

== ENCOUNTER 2018-03-31 16:05 | Emergency (ER) | payer MEDICAID ==
[~2018-03-31] VITALS: Ht 160 cm; Wt 121.8 kg
[2018-03-31 17:06] LABS: EOS # 0.5 (0.04-0.40); EOS % 4.1 % (1.0-5.0); HEMOGLOBIN 13.2 g/dL (12.5-16.0); MEAN CELL VOLUME 85 fl (78-100); MEAN CORPUSCULAR HEMOGLOBIN 29 pg (27-31); MEAN CORPUSCULAR HGB CONC 34 g/dL (33-37); MEAN PLATELET VOLUME 9.7 fl (7.4-10.4); MONO # 0.7 (0.20-0.80); PLATELET COUNT 416 K/mm3 (130-400); RED BLOOD COUNT 4.57 M/mm3 (4.10-5.30); RED CELL DISTRIBUTION WIDTH 13.6 % (11.5-14.5); WHITE BLOOD COUNT 11.3 K/mm3 (4.8-10.8)
[2018-03-31 17:14] LABS: ALBUMIN 4.1 g/dL (3.5-5.0); ALT/SGPT 36 U/L (9-52); AST-SGOT 30 U/L (14-36); CALCIUM 9.4 mg/dL (8.4-10.2); CARBON DIOXIDE 27 mmol/L (22-30); GLUCOSE 97 mg/dL (65-105); POTASSIUM 3.9 mmol/L (3.6-5.0); SODIUM 141 mmol/L (137-145); TOTAL BILIRUBIN 0.3 mg/dL (0.2-1.3); TOTAL PROTEIN 7.1 g/dL (6.3-8.2)
[2018-03-31 17:18] LABS: ACETAMINOPHEN < 4 ug/mL (10-30); ALCOHOL IN-HOUSE < 10 mg/dL
[2018-03-31 17:25] LABS: URINE APPEARANCE CLOUDY; URINE COLOR YELLOW
[2018-03-31 17:26] LABS: URINE BILIRUBIN NEGATIVE (NEGATIVE); URINE BLOOD NEGATIVE (NEGATIVE); URINE GLUCOSE NEGATIVE (NEGATIVE); URINE KETONE NEGATIVE (NEGATIVE); URINE NITRATE NEGATIVE (NEGATIVE); URINE PROTEIN(semi-quant) NEGATIVE (NEGATIVE); URINE UROBILINOGEN NORMAL (NORMAL)
[2018-03-31 17:27] LABS: URINE LEUKOCYTE ESTERASE 1+ (NEGATIVE)
[2018-03-31 18:55] VITALS: BP 138/85
== END 2018-03-31 18:55 | disposition short-term general hospital (02) ==
LOC: ED 16:05
PROVIDERS: Nurse Practitioner Primary Care
DX: T18.2XXA Foreign body in stomach, initial encounter (principal); X83.8XXA Intentional self-harm by other specified means, initial encounter; R45.851 Suicidal ideations; F31.9 Bipolar disorder, unspecified; F25.9 Schizoaffective disorder, unspecified; Z91.5 Personal history of self-harm; F17.200 Nicotine dependence, unspecified, uncomplicated; Z79.899 Other long term (current) drug therapy
CPT/HCPCS: J7030

== ENCOUNTER 2018-04-06 15:27 | Emergency (ER) | payer MEDICAID ==
[~2018-04-06] VITALS: Ht 152.4 cm; Wt 154.5 kg
[2018-04-06 16:05] LABS: BASO # 0.1 (0.02-0.10); EOS # 0.5 (0.04-0.40); EOS % 4.2 % (1.0-5.0); HEMATOCRIT 40.3 % (37.0-47.0); HEMOGLOBIN 13.3 g/dL (12.5-16.0); MEAN CELL VOLUME 87 fl (78-100); MEAN CORPUSCULAR HEMOGLOBIN 29 pg (27-31); MEAN CORPUSCULAR HGB CONC 33 g/dL (33-37); MEAN PLATELET VOLUME 9.5 fl (7.4-10.4); MONO # 0.7 (0.20-0.80); NEU # 6.7 (1.40-6.50); PLATELET COUNT 344 K/mm3 (130-400); RED BLOOD COUNT 4.66 M/mm3 (4.10-5.30); RED CELL DISTRIBUTION WIDTH 13.7 % (11.5-14.5); WHITE BLOOD COUNT 10.9 K/mm3 (4.8-10.8)
[2018-04-06 16:21] LABS: ALBUMIN 4.1 g/dL (3.5-5.0); ALT/SGPT 22 U/L (9-52); AST-SGOT 24 U/L (14-36); CALCIUM 9.2 mg/dL (8.4-10.2); CARBON DIOXIDE 26 mmol/L (22-30); GLUCOSE 102 mg/dL (65-105); POTASSIUM 3.6 mmol/L (3.6-5.0); SODIUM 140 mmol/L (137-145); TOTAL BILIRUBIN 0.5 mg/dL (0.2-1.3); TOTAL PROTEIN 7.1 g/dL (6.3-8.2)
[2018-04-06 16:23] LABS: ACETAMINOPHEN < 4 ug/mL (10-30); ALCOHOL IN-HOUSE < 10 mg/dL
[2018-04-06 17:05] VITALS: BP 151/86
== END 2018-04-06 17:05 | disposition home or self-care (01) ==
LOC: ED 15:27
PROVIDERS: Nurse Practitioner Primary Care
DX: T18.2XXA Foreign body in stomach, initial encounter (principal); X83.8XXA Intentional self-harm by other specified means, initial encounter; Z79.899 Other long term (current) drug therapy; F99 Mental disorder, not otherwise specified; F17.200 Nicotine dependence, unspecified, uncomplicated

== ENCOUNTER 2018-04-08 10:31 | Emergency (ER) | payer MEDICAID ==
[~2018-04-08] VITALS: Wt 118.2 kg
[2018-04-08 11:04] LABS: BASO # 0.1 (0.02-0.10); EOS # 0.4 (0.04-0.40); EOS % 3.9 % (1.0-5.0); HEMATOCRIT 39.9 % (37.0-47.0); HEMOGLOBIN 13.1 g/dL (12.5-16.0); LYMPH# 2.7 (1.50-4.00); MEAN CELL VOLUME 87 fl (78-100); MEAN CORPUSCULAR HEMOGLOBIN 29 pg (27-31); MEAN CORPUSCULAR HGB CONC 33 g/dL (33-37); MEAN PLATELET VOLUME 9.2 fl (7.4-10.4); MONO # 0.5 (0.20-0.80); NEU # 6.7 (1.40-6.50); PLATELET COUNT 352 K/mm3 (130-400); RED CELL DISTRIBUTION WIDTH 13.9 % (11.5-14.5); WHITE BLOOD COUNT 10.4 K/mm3 (4.8-10.8)
[2018-04-08 11:18] LABS: ACETAMINOPHEN < 4 ug/mL (10-30); ALBUMIN 3.9 g/dL (3.5-5.0); ALCOHOL IN-HOUSE < 10 mg/dL; ALT/SGPT 23 U/L (9-52); AST-SGOT 19 U/L (14-36); CALCIUM 9.1 mg/dL (8.4-10.2); CARBON DIOXIDE 27 mmol/L (22-30); GLUCOSE 117 mg/dL (65-105); POTASSIUM 4.1 mmol/L (3.6-5.0); SODIUM 140 mmol/L (137-145); TOTAL BILIRUBIN 0.5 mg/dL (0.2-1.3); TOTAL PROTEIN 6.9 g/dL (6.3-8.2)
[2018-04-08 14:38] VITALS: BP 137/54
== END 2018-04-08 14:04 | disposition short-term general hospital (02) ==
LOC: ED 10:31
PROVIDERS: Nurse Practitioner
DX: T18.2XXA Foreign body in stomach, initial encounter (principal); X83.8XXA Intentional self-harm by other specified means, initial encounter; F31.9 Bipolar disorder, unspecified; F41.9 Anxiety disorder, unspecified; F43.10 Post-traumatic stress disorder, unspecified; F60.3 Borderline personality disorder; F17.200 Nicotine dependence, unspecified, uncomplicated; F29 Unspecified psychosis not due to a substance or known physiological condition; Z79.899 Other long term (current) drug therapy

== ENCOUNTER 2018-05-07 17:00 | Emergency (ER) | payer MEDICAID ==
[~2018-05-07] VITALS: Ht 157.5 cm; Wt 118.2 kg
[2018-05-07] MEDS ORDERED: PREDNISONE20 M1 PO (17:10)
[2018-05-07] MEDS ORDERED: AZITHROMYCIN 250MGPK PO (17:10)
[2018-05-07 17:49] LABS: EOS # 0.2 (0.04-0.40); EOS % 2.3 % (1.0-5.0); HEMATOCRIT 42.1 % (37.0-47.0); HEMOGLOBIN 13.8 g/dL (12.5-16.0); LYMPH# 2.2 (1.50-4.00); MEAN CELL VOLUME 85 fl (78-100); MEAN CORPUSCULAR HEMOGLOBIN 28 pg (27-31); MEAN CORPUSCULAR HGB CONC 33 g/dL (33-37); MEAN PLATELET VOLUME 9.4 fl (7.4-10.4); MONO # 0.5 (0.20-0.80); NEU # 5.6 (1.40-6.50); PLATELET COUNT 291 K/mm3 (130-400); RED BLOOD COUNT 4.94 M/mm3 (4.10-5.30); RED CELL DISTRIBUTION WIDTH 13.8 % (11.5-14.5); WHITE BLOOD COUNT 8.6 K/mm3 (4.8-10.8)
[2018-05-07 18:06] LABS: CALCIUM 9.2 mg/dL (8.4-10.2); POTASSIUM 3.5 mmol/L (3.6-5.0)
[2018-05-07] MEDS ORDERED: ZOFRAN ODT8 M1 PO (18:48)
[2018-05-07] MEDS ORDERED: AMOXIL500 M1 PO (18:56)
[2018-05-07] MEDS ORDERED: TESSALON PERLE100 M1 PO (18:59)
[2018-05-07] MEDS ORDERED: CHERATUSSIN AC120 ML PO (18:59)
[2018-05-07 20:03] VITALS: BP 138/78
[2018-05-07] MEDS ORDERED: XOPENEX 3 ML3 M3 IH (20:29)
[2018-05-08] MEDS ORDERED: TYLENOL 8 HOUR650 M1 PO (16:45)
[2018-05-08] MEDS ORDERED: IBU800 M1 PO (16:45)
[2018-05-08] MEDS ORDERED: AZITHROMYCIN 250MGPK PO (21:00)
[2018-05-08] MEDS ORDERED: ATROVENT I0.2 MG/1 M IH (21:40)
== END 2018-05-07 20:10 | disposition home or self-care (01) ==
LOC: ED 17:00
PROVIDERS: Nurse Practitioner Family
DX: J45.901 Unspecified asthma with (acute) exacerbation (principal); J84.9 Interstitial pulmonary disease, unspecified; J20.9 Acute bronchitis, unspecified; Z79.52 Long term (current) use of systemic steroids; F17.210 Nicotine dependence, cigarettes, uncomplicated; E05.00 Thyrotoxicosis with diffuse goiter without thyrotoxic crisis or storm; F25.9 Schizoaffective disorder, unspecified; R00.0 Tachycardia, unspecified; Z79.899 Other long term (current) drug therapy

== ENCOUNTER 2018-05-08 20:22 | Emergency (ER) | payer MEDICAID ==
[~2018-05-08] VITALS: Ht 157.5 cm; Wt 118.2 kg
[~2018-05-08 20:22] MED LIST changes: +AMOXIL500 M1 PO; +AZITHROMYCIN 250MGPK PO; +CHERATUSSIN AC120 ML PO; +IBU800 M1 PO; +TYLENOL 8 HOUR650 M1 PO; +XOPENEX 3 ML3 M3 IH
[2018-05-08] MEDS ORDERED: AZITHROMYCIN 250MGPK PO (21:00)
[2018-05-08] MEDS ORDERED: ATROVENT I0.2 MG/1 M IH (21:40)
[2018-05-08 21:55] VITALS: BP 124/69
== END 2018-05-08 21:55 | disposition home or self-care (01) ==
LOC: ED 20:22
DX: J45.909 Unspecified asthma, uncomplicated (principal); F17.200 Nicotine dependence, unspecified, uncomplicated; F99 Mental disorder, not otherwise specified; Z79.899 Other long term (current) drug therapy

== ENCOUNTER 2018-05-10 13:17 | Emergency (ER) | payer MEDICAID ==
[~2018-05-10] VITALS: Ht 162.6 cm; Wt 104.5 kg
[~2018-05-10 13:17] MED LIST changes: +ATROVENT I0.2 MG/1 M IH
[2018-05-10] MEDS ORDERED: CHERATUSSIN AC120 ML PO (13:32)
[2018-05-10 14:18] VITALS: BP 123/79
== END 2018-05-10 14:18 | disposition home or self-care (01) ==
LOC: ED 13:17
DX: L50.9 Urticaria, unspecified (principal); F41.9 Anxiety disorder, unspecified; Z79.899 Other long term (current) drug therapy

== ENCOUNTER 2018-05-14 20:25 | Emergency (ER) | payer MEDICAID ==
[2018-05-14] MEDS ORDERED: AUGMENTIN 875-1 EAC1 PO (21:16)
[2018-05-14] MEDS ORDERED: NORCO 325 MG-51 TA1 PO (21:17)
[2018-05-14 21:29] VITALS: BP 133/69
== END 2018-05-14 21:32 | disposition home or self-care (01) ==
LOC: ED 20:25
DX: K05.20 Aggressive periodontitis, unspecified (principal); K03.81 Cracked tooth; Z88.5 Allergy status to narcotic agent

== ENCOUNTER 2018-05-20 11:17 | Emergency (ER) | payer MEDICAID ==
[~2018-05-20] VITALS: Ht 157.5 cm; Wt 118.2 kg
[2018-05-20 11:20] VITALS: BP 118/76
[2018-05-20 11:53] LABS: BASO # 0.1 (0.02-0.10); EOS # 0.4 (0.04-0.40); HEMATOCRIT 45.9 % (37.0-47.0); HEMOGLOBIN 15.2 g/dL (12.5-16.0); LYMPH# 3.3 (1.50-4.00); MEAN CELL VOLUME 85 fl (78-100); MEAN CORPUSCULAR HEMOGLOBIN 28 pg (27-31); MEAN CORPUSCULAR HGB CONC 33 g/dL (33-37); MEAN PLATELET VOLUME 9.6 fl (7.4-10.4); MONO # 0.7 (0.20-0.80); NEU # 4.8 (1.40-6.50); PLATELET COUNT 462 K/mm3 (130-400); RED BLOOD COUNT 5.43 M/mm3 (4.10-5.30); RED CELL DISTRIBUTION WIDTH 14.1 % (11.5-14.5); WHITE BLOOD COUNT 9.3 K/mm3 (4.8-10.8)
[2018-05-20 12:11] LABS: URINE APPEARANCE CLOUDY; URINE BILIRUBIN NEGATIVE (NEGATIVE); URINE BLOOD NEGATIVE (NEGATIVE); URINE COLOR YELLOW; URINE GLUCOSE NEGATIVE (NEGATIVE); URINE KETONE NEGATIVE (NEGATIVE); URINE LEUKOCYTE ESTERASE NEGATIVE (NEGATIVE); URINE MUCUS PRESENT (NOT PRESENT); URINE NITRATE NEGATIVE (NEGATIVE); URINE PROTEIN(semi-quant) TRACE mg/dL (NEGATIVE); URINE UROBILINOGEN NORMAL (NORMAL)
[2018-05-20 12:11] LABS: ACETAMINOPHEN < 4 ug/mL (10-30); ALBUMIN 4.4 g/dL (3.5-5.0); ALCOHOL IN-HOUSE < 10 mg/dL; ALT/SGPT 48 U/L (9-52); AST-SGOT 34 U/L (14-36); CARBON DIOXIDE 25 mmol/L (22-30); GLUCOSE 106 mg/dL (65-105); POTASSIUM 4.6 mmol/L (3.6-5.0); SODIUM 140 mmol/L (137-145); TOTAL BILIRUBIN 0.8 mg/dL (0.2-1.3); TOTAL PROTEIN 7.8 g/dL (6.3-8.2)
== END 2018-05-20 15:15 | disposition home or self-care (01) ==
LOC: ED 11:17
PROVIDERS: Nurse Practitioner
DX: R45.851 Suicidal ideations (principal); F31.9 Bipolar disorder, unspecified; F60.3 Borderline personality disorder; F43.10 Post-traumatic stress disorder, unspecified; Z91.5 Personal history of self-harm; F29 Unspecified psychosis not due to a substance or known physiological condition; J45.909 Unspecified asthma, uncomplicated; F17.200 Nicotine dependence, unspecified, uncomplicated; Z79.899 Other long term (current) drug therapy; K21.9 Gastro-esophageal reflux disease without esophagitis; E05.00 Thyrotoxicosis with diffuse goiter without thyrotoxic crisis or storm

== ENCOUNTER 2018-05-20 19:09 | Emergency (ER) | payer MEDICAID ==
[~2018-05-20] VITALS: Ht 157.5 cm; Wt 118.2 kg
[2018-05-20 20:15] LABS: CARBON DIOXIDE 27 mmol/L (22-30); GLUCOSE 106 mg/dL (65-105); POTASSIUM 4.2 mmol/L (3.6-5.0); SODIUM 138 mmol/L (137-145); TOTAL PROTEIN 7.4 g/dL (6.3-8.2)
[2018-05-20 20:24] LABS: EOS # 0.2 (0.04-0.40); EOS % 1.8 % (1.0-5.0); HEMOGLOBIN 14.5 g/dL (12.5-16.0); LYMPH# 3.3 (1.50-4.00); MEAN CELL VOLUME 86 fl (78-100); MEAN CORPUSCULAR HEMOGLOBIN 30 pg (27-31); MEAN CORPUSCULAR HGB CONC 35 g/dL (33-37); MEAN PLATELET VOLUME 9.7 fl (7.4-10.4); MONO # 0.8 (0.20-0.80); NEU # 5.9 (1.40-6.50); PLATELET COUNT 434 K/mm3 (130-400); RED BLOOD COUNT 4.88 M/mm3 (4.10-5.30); RED CELL DISTRIBUTION WIDTH 14.9 % (11.5-14.5); WHITE BLOOD COUNT 10.2 K/mm3 (4.8-10.8)
[2018-05-20 20:25] LABS: ALCOHOL IN-HOUSE < 10 mg/dL
[2018-05-20 20:27] LABS: PARTIAL THROMBOPLASTIN TIME 21.5 SECONDS (21.0-32.0); PROTHROMBIN TIME 10.3 SECONDS (9.0-12.0)
[2018-05-20 20:35] LABS: ALT/SGPT 49 U/L (9-52); AST-SGOT 44 U/L (14-36); CALCIUM 9.9 mg/dL (8.4-10.2); TOTAL BILIRUBIN 0.8 mg/dL (0.2-1.3)
[2018-05-20 21:00] LABS: ACETAMINOPHEN < 4 ug/mL (10-30)
[2018-05-20 21:17] LABS: URINE APPEARANCE CLOUDY; URINE BILIRUBIN NEGATIVE (NEGATIVE); URINE BLOOD NEGATIVE (NEGATIVE); URINE COLOR YELLOW; URINE GLUCOSE NEGATIVE (NEGATIVE); URINE KETONE NEGATIVE (NEGATIVE); URINE LEUKOCYTE ESTERASE NEGATIVE (NEGATIVE); URINE NITRATE NEGATIVE (NEGATIVE); URINE PROTEIN(semi-quant) 1+ mg/dL (NEGATIVE); URINE UROBILINOGEN NORMAL (NORMAL)
[2018-05-20 21:18] LABS: URINE MUCUS PRESENT (NOT PRESENT); URINE WBC 0-1 /hpf (0-3)
[2018-05-20 22:20] VITALS: BP 110/58
== END 2018-05-20 22:43 | disposition short-term general hospital (02) ==
LOC: ED 19:09
PROVIDERS: Nurse Practitioner
DX: T39.312A Poisoning by propionic acid derivatives, intentional self-harm, initial encounter (principal); T43.012A Poisoning by tricyclic antidepressants, intentional self-harm, initial encounter; Z91.5 Personal history of self-harm; F31.9 Bipolar disorder, unspecified; F43.10 Post-traumatic stress disorder, unspecified; F60.3 Borderline personality disorder; R00.0 Tachycardia, unspecified; J45.909 Unspecified asthma, uncomplicated; E05.00 Thyrotoxicosis with diffuse goiter without thyrotoxic crisis or storm; K21.9 Gastro-esophageal reflux disease without esophagitis; Z79.899 Other long term (current) drug therapy; F17.200 Nicotine dependence, unspecified, uncomplicated
CPT/HCPCS: C9113; J7030

== ENCOUNTER 2018-05-22 15:27 | Observation (INO) | payer MEDICAID ==
[~2018-05-22] VITALS: Ht 157.5 cm; Wt 117.2 kg
[2018-05-23 08:02] LABS: EOS # 0.2 (0.04-0.40); EOS % 2.6 % (1.0-5.0); HEMATOCRIT 40.1 % (37.0-47.0); HEMOGLOBIN 13.4 g/dL (12.5-16.0); LYMPH# 2.5 (1.50-4.00); MEAN CELL VOLUME 86 fl (78-100); MEAN CORPUSCULAR HEMOGLOBIN 29 pg (27-31); MEAN CORPUSCULAR HGB CONC 33 g/dL (33-37); MEAN PLATELET VOLUME 9.3 fl (7.4-10.4); MONO # 0.6 (0.20-0.80); NEU # 4.9 (1.40-6.50); PLATELET COUNT 363 K/mm3 (130-400); RED BLOOD COUNT 4.65 M/mm3 (4.10-5.30); RED CELL DISTRIBUTION WIDTH 14.4 % (11.5-14.5); WHITE BLOOD COUNT 8.2 K/mm3 (4.8-10.8)
[2018-05-23 08:16] LABS: ACETAMINOPHEN < 4 ug/mL (10-30); ALBUMIN 3.7 g/dL (3.5-5.0); ALCOHOL IN-HOUSE < 10 mg/dL; ALT/SGPT 39 U/L (9-52); AST-SGOT 25 U/L (14-36); CALCIUM 9.5 mg/dL (8.4-10.2); CARBON DIOXIDE 27 mmol/L (22-30); GLUCOSE 102 mg/dL (65-105); POTASSIUM 4.2 mmol/L (3.6-5.0); SODIUM 140 mmol/L (137-145); TOTAL BILIRUBIN 0.5 mg/dL (0.2-1.3); TOTAL PROTEIN 6.7 g/dL (6.3-8.2)
[2018-05-23 20:35] VITALS: BP 128/95
[2018-05-23 22:50] VITALS: BP 111/74
[2018-05-24 02:48] VITALS: BP 104/71
[2018-05-24 06:28] VITALS: BP 86/61
[2018-05-24 11:00] VITALS: BP 124/76
[2018-05-24 15:08] VITALS: BP 113/79
[2018-05-24 18:30] VITALS: BP 135/89
[2018-05-24 18:47] VITALS: BP 135/89
== END 2018-05-24 18:30 ==
LOC: ED 15:27 → MED/SURG 05-23 16:23 → ED 05-23 19:47 → MED/SURG 05-24 18:30
PROVIDERS: ADMIT Family Medicine
DX: R45.851 Suicidal ideations (principal); F31.9 Bipolar disorder, unspecified; F41.9 Anxiety disorder, unspecified; F43.10 Post-traumatic stress disorder, unspecified; Z91.5 Personal history of self-harm; Z79.899 Other long term (current) drug therapy
CPT/HCPCS: G0378

== ENCOUNTER 2018-06-05 23:01 | Emergency (ER) | payer MEDICAID ==
[2018-06-06] MEDS ORDERED: DOXYCYCLINE HY100 M5 PO (01:22)
[2018-06-06] MEDS ORDERED: METRONIDAZOLE500 M1 PO (01:22)
[2018-06-06] MEDS ORDERED: OMEPRAZOLE D/R20 MG PO (01:28)
[2018-06-06 01:37] VITALS: BP 127/81
[2018-06-07] MEDS ORDERED: PREDNISONE20 M1 PO (20:21)
== END 2018-06-06 01:37 | disposition home or self-care (01) ==
LOC: ED 23:01
DX: N73.9 Female pelvic inflammatory disease, unspecified (principal); K21.9 Gastro-esophageal reflux disease without esophagitis; E28.2 Polycystic ovarian syndrome; F99 Mental disorder, not otherwise specified; Z79.899 Other long term (current) drug therapy
CPT/HCPCS: J0696

== ENCOUNTER 2018-06-07 18:54 | Emergency (ER) | payer MEDICAID ==
[~2018-06-07 18:54] MED LIST changes: +DOXYCYCLINE HY100 M5 PO; +METRONIDAZOLE500 M1 PO; +OMEPRAZOLE D/R20 MG PO
[2018-06-07] MEDS ORDERED: PREDNISONE20 M1 PO (20:21)
[2018-06-07 20:32] VITALS: BP 116/74
== END 2018-06-07 20:32 | disposition home or self-care (01) ==
LOC: ED 18:54
DX: R05 Cough (principal); K21.9 Gastro-esophageal reflux disease without esophagitis; J45.909 Unspecified asthma, uncomplicated; E05.00 Thyrotoxicosis with diffuse goiter without thyrotoxic crisis or storm; F99 Mental disorder, not otherwise specified; Z79.899 Other long term (current) drug therapy; Z90.49 Acquired absence of other specified parts of digestive tract; R09.89 Other specified symptoms and signs involving the circulatory and respiratory systems

== ENCOUNTER 2018-06-08 14:09 | Emergency (ER) | payer MEDICAID ==
[~2018-06-08] VITALS: Ht 157.5 cm; Wt 118.6 kg
[2018-06-08 17:31] VITALS: BP 128/72
== END 2018-06-08 17:25 | disposition short-term general hospital (02) ==
LOC: ED 14:09
DX: Z04.41 Encounter for examination and observation following alleged adult rape (principal); F99 Mental disorder, not otherwise specified; F17.200 Nicotine dependence, unspecified, uncomplicated; Z79.899 Other long term (current) drug therapy

== ENCOUNTER 2018-06-14 12:51 | Emergency (ER) | payer MEDICAID ==
[~2018-06-14] VITALS: Ht 157.5 cm; Wt 118.2 kg
[2018-06-14 15:22] VITALS: BP 118/68
== END 2018-06-14 15:22 | disposition home or self-care (01) ==
LOC: ED 12:51
DX: M22.12 Recurrent subluxation of patella, left knee (principal); F31.9 Bipolar disorder, unspecified; Z79.899 Other long term (current) drug therapy
CPT/HCPCS: 15976; L1830

== ENCOUNTER 2018-06-20 20:50 | Emergency (ER) | payer MEDICAID ==
[~2018-06-20] VITALS: Ht 157.5 cm; Wt 118.2 kg
[2018-06-20] MEDS ORDERED: KLONOPIN 1MG1 MG PO (22:13)
[2018-06-20] MEDS ORDERED: CARAFATE S1 GM/10 ML PO (22:13)
[2018-06-20 22:20] VITALS: BP 119/74
== END 2018-06-20 22:20 | disposition home or self-care (01) ==
LOC: ED 20:50
DX: F41.9 Anxiety disorder, unspecified (principal); F43.10 Post-traumatic stress disorder, unspecified; K21.9 Gastro-esophageal reflux disease without esophagitis; Z79.899 Other long term (current) drug therapy

== ENCOUNTER 2018-06-24 21:00 | Emergency (ER) | payer MEDICAID ==
[~2018-06-24] VITALS: Ht 157.5 cm; Wt 118.2 kg
[~2018-06-24 21:00] MED LIST changes: +CARAFATE S1 GM/10 ML PO; +KLONOPIN 1MG1 MG PO
[2018-06-24 22:16] LABS: EOS # 0.5 (0.04-0.40); EOS % 4.5 % (1.0-5.0); HEMATOCRIT 40.4 % (37.0-47.0); HEMOGLOBIN 13.7 g/dL (12.5-16.0); LYMPH# 4.1 (1.50-4.00); MEAN CELL VOLUME 86 fl (78-100); MEAN CORPUSCULAR HEMOGLOBIN 29 pg (27-31); MEAN CORPUSCULAR HGB CONC 34 g/dL (33-37); MEAN PLATELET VOLUME 9.6 fl (7.4-10.4); MONO # 0.7 (0.20-0.80); NEU # 5.6 (1.40-6.50); PLATELET COUNT 365 K/mm3 (130-400); RED CELL DISTRIBUTION WIDTH 14.8 % (11.5-14.5)
[2018-06-24 22:23] LABS: PROTHROMBIN TIME 9.8 SECONDS (9.0-12.0)
[2018-06-24 22:27] LABS: ACETAMINOPHEN 89 ug/mL (10-30); ALBUMIN 4.1 g/dL (3.5-5.0); ALT/SGPT 32 U/L (9-52); AST-SGOT 23 U/L (14-36); CALCIUM 9.4 mg/dL (8.4-10.2); CARBON DIOXIDE 23 mmol/L (22-30); GLUCOSE 140 mg/dL (65-105); POTASSIUM 3.6 mmol/L (3.6-5.0); SODIUM 139 mmol/L (137-145); TOTAL BILIRUBIN 0.3 mg/dL (0.2-1.3); TOTAL PROTEIN 6.8 g/dL (6.3-8.2)
[2018-06-24 22:30] LABS: ALCOHOL IN-HOUSE < 10 mg/dL
[2018-06-25 05:10] VITALS: BP 108/66
== END 2018-06-25 05:10 | disposition home or self-care (01) ==
LOC: ED 21:00
PROVIDERS: Nurse Practitioner
DX: T39.1X2A Poisoning by 4-Aminophenol derivatives, intentional self-harm, initial encounter (principal); F31.9 Bipolar disorder, unspecified; Y92.238 Other place in hospital as the place of occurrence of the external cause; F60.9 Personality disorder, unspecified; F41.9 Anxiety disorder, unspecified; J45.909 Unspecified asthma, uncomplicated; F43.10 Post-traumatic stress disorder, unspecified; K21.9 Gastro-esophageal reflux disease without esophagitis; E05.00 Thyrotoxicosis with diffuse goiter without thyrotoxic crisis or storm; F17.200 Nicotine dependence, unspecified, uncomplicated; Z79.899 Other long term (current) drug therapy; G40.909 Epilepsy, unspecified, not intractable, without status epilepticus

== ENCOUNTER 2018-06-28 22:43 | Emergency (ER) | payer MEDICAID ==
[2018-06-28 23:43] LABS: EOS # 0.4 (0.04-0.40); EOS % 3.2 % (1.0-5.0); HEMOGLOBIN 14.2 g/dL (12.5-16.0); LYMPH# 3.3 (1.50-4.00); MEAN CELL VOLUME 86 fl (78-100); MEAN CORPUSCULAR HEMOGLOBIN 29 pg (27-31); MEAN CORPUSCULAR HGB CONC 34 g/dL (33-37); MEAN PLATELET VOLUME 9.6 fl (7.4-10.4); MONO # 0.7 (0.20-0.80); NEU # 6.7 (1.40-6.50); PLATELET COUNT 350 K/mm3 (130-400); RED CELL DISTRIBUTION WIDTH 14.9 % (11.5-14.5); WHITE BLOOD COUNT 11.1 K/mm3 (4.8-10.8)
[2018-06-28 23:52] LABS: ALBUMIN 4.4 g/dL (3.5-5.0); CALCIUM 9.7 mg/dL (8.4-10.2); POTASSIUM 3.6 mmol/L (3.6-5.0); TOTAL BILIRUBIN 0.5 mg/dL (0.2-1.3); TOTAL PROTEIN 7.3 g/dL (6.3-8.2)
[2018-06-29 10:05] VITALS: BP 137/75
== END 2018-06-29 10:43 | disposition short-term general hospital (02) ==
LOC: ED 22:43
PROVIDERS: Family Medicine
DX: T39.1X2A Poisoning by 4-Aminophenol derivatives, intentional self-harm, initial encounter (principal); T45.0X2A Poisoning by antiallergic and antiemetic drugs, intentional self-harm, initial encounter; F31.5 Bipolar disorder, current episode depressed, severe, with psychotic features; F20.9 Schizophrenia, unspecified; Z91.5 Personal history of self-harm; J45.909 Unspecified asthma, uncomplicated; E05.00 Thyrotoxicosis with diffuse goiter without thyrotoxic crisis or storm; E28.2 Polycystic ovarian syndrome; F17.200 Nicotine dependence, unspecified, uncomplicated; R46.0 Very low level of personal hygiene
CPT/HCPCS: J0132; J1200; J2930; J7060; J7070

== ENCOUNTER 2018-07-01 18:04 | Emergency (ER) | payer MEDICAID ==
[~2018-07-01] VITALS: Wt 119.3 kg
[2018-07-01 19:06] LABS: EOS # 0.3 (0.04-0.40); EOS % 2.4 % (1.0-5.0); HEMATOCRIT 40.5 % (37.0-47.0); HEMOGLOBIN 13.4 g/dL (12.5-16.0); LYMPH# 3.5 (1.50-4.00); MEAN CELL VOLUME 86 fl (78-100); MEAN CORPUSCULAR HEMOGLOBIN 29 pg (27-31); MEAN CORPUSCULAR HGB CONC 33 g/dL (33-37); MEAN PLATELET VOLUME 9.4 fl (7.4-10.4); MONO # 0.6 (0.20-0.80); NEU # 7.9 (1.40-6.50); PLATELET COUNT 350 K/mm3 (130-400); RED CELL DISTRIBUTION WIDTH 15.1 % (11.5-14.5); WHITE BLOOD COUNT 12.4 K/mm3 (4.8-10.8)
[2018-07-01 20:03] LABS: ALBUMIN 4.1 g/dL (3.5-5.0); ALT/SGPT 37 U/L (9-52); AST-SGOT 29 U/L (14-36); CALCIUM 9.8 mg/dL (8.4-10.2); CARBON DIOXIDE 24 mmol/L (22-30); GLUCOSE 80 mg/dL (65-105); POTASSIUM 3.9 mmol/L (3.6-5.0); SODIUM 140 mmol/L (137-145); TOTAL BILIRUBIN 0.4 mg/dL (0.2-1.3); TOTAL PROTEIN 6.7 g/dL (6.3-8.2)
[2018-07-01 20:15] LABS: ACETAMINOPHEN < 4 ug/mL (10-30); ALCOHOL IN-HOUSE < 10 mg/dL
[2018-07-01 21:22] LABS: URINE APPEARANCE HAZY; URINE COLOR YELLOW
[2018-07-01 21:24] LABS: URINE BILIRUBIN NEGATIVE (NEGATIVE); URINE BLOOD TRACE (NEGATIVE); URINE GLUCOSE NEGATIVE (NEGATIVE); URINE KETONE NEGATIVE (NEGATIVE); URINE LEUKOCYTE ESTERASE NEGATIVE (NEGATIVE); URINE NITRATE NEGATIVE (NEGATIVE); URINE PROTEIN(semi-quant) NEGATIVE (NEGATIVE); URINE UROBILINOGEN NORMAL (NORMAL); URINE WBC 0-1 /hpf (0-3)
[2018-07-02 00:46] VITALS: BP 147/90
== END 2018-07-02 00:46 | disposition short-term general hospital (02) ==
LOC: ED 18:04
PROVIDERS: Physician Assistant
DX: R45.851 Suicidal ideations (principal); F25.9 Schizoaffective disorder, unspecified; F43.10 Post-traumatic stress disorder, unspecified; F41.9 Anxiety disorder, unspecified; Z79.899 Other long term (current) drug therapy; Z88.8 Allergy status to other drugs, medicaments and biological substances; Z91.5 Personal history of self-harm

== ENCOUNTER 2018-07-05 20:50 | Emergency (ER) | payer MEDICAID ==
[~2018-07-05] VITALS: Ht 157.5 cm; Wt 118.2 kg
[2018-07-05] MEDS ORDERED: KLONOPIN 1MG1 MG PO (22:50)
[2018-07-05 23:08] VITALS: BP 143/92
== END 2018-07-05 23:08 | disposition home or self-care (01) ==
LOC: ED 20:50
DX: H91.91 Unspecified hearing loss, right ear (principal); F41.9 Anxiety disorder, unspecified; H53.9 Unspecified visual disturbance; R40.2412 Glasgow coma scale score 13-15, at arrival to emergency department; E05.00 Thyrotoxicosis with diffuse goiter without thyrotoxic crisis or storm; J45.909 Unspecified asthma, uncomplicated; E28.2 Polycystic ovarian syndrome; F99 Mental disorder, not otherwise specified; F17.200 Nicotine dependence, unspecified, uncomplicated; T42.4X6A Underdosing of benzodiazepines, initial encounter; Z91.138 Patient's unintentional underdosing of medication regimen for other reason

== ENCOUNTER 2018-07-08 22:55 | Emergency (ER) | payer MEDICAID ==
[2018-07-08] MEDS ORDERED: OMEPRAZOLE D/R20 MG PO (23:00)
[2018-07-08] MEDS ORDERED: ABILIFY MAINTE400 MG IM (23:00)
[2018-07-08 23:34] LABS: EOS # 0.4 (0.04-0.40); EOS % 3.2 % (1.0-5.0); HEMOGLOBIN 14.3 g/dL (12.5-16.0); LYMPH# 3.8 (1.50-4.00); MEAN CELL VOLUME 87 fl (78-100); MEAN CORPUSCULAR HEMOGLOBIN 29 pg (27-31); MEAN CORPUSCULAR HGB CONC 33 g/dL (33-37); MEAN PLATELET VOLUME 9.1 fl (7.4-10.4); MONO # 0.7 (0.20-0.80); NEU # 6.1 (1.40-6.50); PLATELET COUNT 426 K/mm3 (130-400); RED BLOOD COUNT 4.97 M/mm3 (4.10-5.30); RED CELL DISTRIBUTION WIDTH 14.6 % (11.5-14.5)
[2018-07-08 23:48] LABS: URINE APPEARANCE HAZY; URINE BILIRUBIN NEGATIVE (NEGATIVE); URINE BLOOD NEGATIVE (NEGATIVE); URINE COLOR YELLOW; URINE GLUCOSE NEGATIVE (NEGATIVE); URINE KETONE NEGATIVE (NEGATIVE); URINE LEUKOCYTE ESTERASE NEGATIVE (NEGATIVE); URINE MUCUS PRESENT (NOT PRESENT); URINE NITRATE NEGATIVE (NEGATIVE); URINE PROTEIN(semi-quant) TRACE mg/dL (NEGATIVE); URINE UROBILINOGEN NORMAL (NORMAL)
[2018-07-08 23:52] LABS: ALBUMIN 4.4 g/dL (3.5-5.0); ALT/SGPT 37 U/L (9-52); AST-SGOT 22 U/L (14-36); CALCIUM 9.6 mg/dL (8.4-10.2); CARBON DIOXIDE 26 mmol/L (22-30); GLUCOSE 89 mg/dL (65-105); POTASSIUM 4.1 mmol/L (3.6-5.0); SODIUM 141 mmol/L (137-145); TOTAL BILIRUBIN 0.4 mg/dL (0.2-1.3); TOTAL PROTEIN 7.4 g/dL (6.3-8.2)
[2018-07-08 23:54] LABS: ACETAMINOPHEN < 4 ug/mL (10-30); ALCOHOL IN-HOUSE < 10 mg/dL
[2018-07-09 01:20] VITALS: BP 101/72
== END 2018-07-09 01:20 | disposition home or self-care (01) ==
LOC: ED 22:55
PROVIDERS: Physician Assistant
DX: R45.851 Suicidal ideations (principal); F25.9 Schizoaffective disorder, unspecified; F32.9 Major depressive disorder, single episode, unspecified; F41.9 Anxiety disorder, unspecified; F43.10 Post-traumatic stress disorder, unspecified; E05.90 Thyrotoxicosis, unspecified without thyrotoxic crisis or storm; Z79.899 Other long term (current) drug therapy; F17.210 Nicotine dependence, cigarettes, uncomplicated

== ENCOUNTER 2018-07-18 21:12 | Observation (INO) | payer MEDICAID ==
[~2018-07-18] VITALS: Ht 160 cm; Wt 120.7 kg
[~2018-07-18 21:12] MED LIST changes: +ABILIFY MAINTE400 MG IM
[2018-07-18] MEDS ORDERED: PERCOCET 325 MG1 TA2 PO (21:19)
[2018-07-18] MEDS ORDERED: NORCO 325 MG-51 TA1 PO (21:19)
[2018-07-18 22:08] LABS: HEMATOCRIT 36.4 % (37.0-47.0); HEMOGLOBIN 12.1 g/dL (12.5-16.0); MEAN CELL VOLUME 88 fl (78-100); MEAN CORPUSCULAR HEMOGLOBIN 29 pg (27-31); MEAN CORPUSCULAR HGB CONC 33 g/dL (33-37); MEAN PLATELET VOLUME 9.6 fl (7.4-10.4); PLATELET COUNT 348 K/mm3 (130-400); RED BLOOD COUNT 4.16 M/mm3 (4.10-5.30); RED CELL DISTRIBUTION WIDTH 14.5 % (11.5-14.5); WHITE BLOOD COUNT 12.1 K/mm3 (4.8-10.8)
[2018-07-18 22:24] LABS: LYMPHOCYTE 38 % (20-51); MONOCYTE 4 % (3-10); NEUTROPHILS 57 % (42-75)
[2018-07-18 23:11] LABS: ERYTHROCYTE SEDIMENTATION RATE 31 mm/hr (0-20)
[2018-07-18] MEDS ORDERED: NORCO 7.5-3251 EACH PO (23:17)
[2018-07-18] MEDS ORDERED: OXYCODONE5 M1 PO (23:17)
[2018-07-19] VITALS (7 sets, daily range): BP systolic 102–122; BP diastolic 66–84
[2018-07-20 03:00] VITALS: BP 102/67
[2018-07-20 06:34] VITALS: BP 107/72
[2018-07-20 11:36] VITALS: BP 108/62
[2018-07-20 15:13] VITALS: BP 122/62
[2018-07-20 18:07] VITALS: BP 112/74
[2018-07-20 23:51] VITALS: BP 119/60
[2018-07-21 02:26] VITALS: BP 130/68
[2018-07-21 06:23] VITALS: BP 106/64
[2018-07-21 11:00] VITALS: BP 115/71
[2018-07-21] MEDS ORDERED: TRAMADOL 50 MG TAB PO (14:16)
[2018-07-21] MEDS ORDERED: OXYCODONE HCL15 MG PO (14:20)
[2018-07-21 15:00] VITALS: BP 119/74
== END 2018-07-21 16:02 | disposition home health service (06) ==
LOC: ED 21:12 → MED/SURG 23:23 → ED 07-19 00:10 → MED/SURG 07-21 16:02
PROVIDERS: ADMIT Family Medicine
DX: G89.18 Other acute postprocedural pain (principal); M25.562 Pain in left knee; R26.81 Unsteadiness on feet; R53.81 Other malaise; Z74.1 Need for assistance with personal care; F31.9 Bipolar disorder, unspecified; F41.9 Anxiety disorder, unspecified; F60.9 Personality disorder, unspecified; F43.10 Post-traumatic stress disorder, unspecified; F17.200 Nicotine dependence, unspecified, uncomplicated; Z91.5 Personal history of self-harm; E05.00 Thyrotoxicosis with diffuse goiter without thyrotoxic crisis or storm; E66.01 Morbid (severe) obesity due to excess calories; K21.9 Gastro-esophageal reflux disease without esophagitis; Z79.899 Other long term (current) drug therapy; Z68.42 Body mass index [BMI] 45.0-49.9, adult
CPT/HCPCS: G0378; J1650; J1885

== ENCOUNTER 2018-07-24 18:29 | Emergency (ER) | payer MEDICAID ==
[~2018-07-24] VITALS: Ht 160 cm; Wt 118.2 kg
[~2018-07-24 18:29] MED LIST changes: +NORCO 7.5-3251 EACH PO; +OXYCODONE HCL15 MG PO; +OXYCODONE5 M1 PO; +PERCOCET 325 MG1 TA2 PO; +TRAMADOL 50 MG TAB PO
[2018-07-24 18:38] VITALS: BP 129/48
[2018-07-24] MEDS ORDERED: NORCO 325 MG-7.1 TA1 PO (18:42)
[2018-07-24] MEDS ORDERED: COLACE100 M1 PO (18:48)
[2018-07-24 19:14] LABS: BASO # 0.1 (0.02-0.10); EOS # 0.5 (0.04-0.40); EOS % 4.5 % (1.0-5.0); HEMATOCRIT 37.7 % (37.0-47.0); HEMOGLOBIN 12.3 g/dL (12.5-16.0); LYMPH# 3.7 (1.50-4.00); MEAN CELL VOLUME 87 fl (78-100); MEAN CORPUSCULAR HEMOGLOBIN 28 pg (27-31); MEAN CORPUSCULAR HGB CONC 33 g/dL (33-37); MEAN PLATELET VOLUME 9.2 fl (7.4-10.4); MONO # 0.7 (0.20-0.80); NEU # 6.9 (1.40-6.50); PLATELET COUNT 404 K/mm3 (130-400); RED BLOOD COUNT 4.33 M/mm3 (4.10-5.30); RED CELL DISTRIBUTION WIDTH 14.2 % (11.5-14.5); WHITE BLOOD COUNT 11.9 K/mm3 (4.8-10.8)
[2018-07-24 20:09] LABS: POTASSIUM 3.9 mmol/L (3.6-5.0)
[2018-07-24 20:19] LABS: ERYTHROCYTE SEDIMENTATION RATE 51 mm/hr (0-20)
[2018-07-24] MEDS ORDERED: NAPROXEN500 MG PO (21:58)
[2018-07-24] MEDS ORDERED: KETOROLAC10 MG PO (21:58)
[2018-07-24] MEDS ORDERED: MIRALAX119 GM PO (21:58)
== END 2018-07-24 22:07 | disposition home or self-care (01) ==
LOC: ED 18:29
PROVIDERS: Family Medicine
DX: G89.18 Other acute postprocedural pain (principal); M25.562 Pain in left knee; J45.909 Unspecified asthma, uncomplicated; R00.0 Tachycardia, unspecified; E05.00 Thyrotoxicosis with diffuse goiter without thyrotoxic crisis or storm; F17.210 Nicotine dependence, cigarettes, uncomplicated; Z98.890 Other specified postprocedural states; Z90.49 Acquired absence of other specified parts of digestive tract
CPT/HCPCS: J1885

== ENCOUNTER 2018-07-31 01:47 | Emergency (ER) | payer MEDICAID ==
[~2018-07-31 01:47] MED LIST changes: +COLACE100 M1 PO; +MIRALAX119 GM PO; +NAPROXEN500 MG PO
[2018-07-31 02:46] LABS: ACETAMINOPHEN < 4 ug/mL (10-30)
[2018-07-31 02:47] LABS: ALCOHOL IN-HOUSE < 10 mg/dL
[2018-07-31 02:48] LABS: URINE COLOR YELLOW
[2018-07-31 02:49] LABS: URINE APPEARANCE HAZY; URINE BILIRUBIN NEGATIVE (NEGATIVE); URINE BLOOD NEGATIVE (NEGATIVE); URINE GLUCOSE NEGATIVE (NEGATIVE); URINE KETONE NEGATIVE (NEGATIVE); URINE LEUKOCYTE ESTERASE NEGATIVE (NEGATIVE); URINE MUCUS PRESENT (NOT PRESENT); URINE NITRATE NEGATIVE (NEGATIVE); URINE PROTEIN(semi-quant) NEGATIVE (NEGATIVE); URINE UROBILINOGEN NORMAL (NORMAL)
[2018-07-31 11:33] VITALS: BP 138/76
== END 2018-07-31 11:26 | disposition home or self-care (01) ==
LOC: ED 01:47
PROVIDERS: Nurse Practitioner
DX: T40.2X2A Poisoning by other opioids, intentional self-harm, initial encounter (principal); F25.9 Schizoaffective disorder, unspecified; F17.210 Nicotine dependence, cigarettes, uncomplicated; Z96.652 Presence of left artificial knee joint

== ENCOUNTER 2018-08-10 21:27 | Emergency (ER) | payer MEDICAID ==
[~2018-08-10] VITALS: Ht 157.5 cm; Wt 127.3 kg
[2018-08-10 22:10] LABS: BASO # 0.1 (0.02-0.10); EOS % 6.9 % (1.0-5.0); HEMOGLOBIN 12.8 g/dL (12.5-16.0); LYMPH# 2.8 (1.50-4.00); MEAN CELL VOLUME 87 fl (78-100); MEAN CORPUSCULAR HEMOGLOBIN 28 pg (27-31); MEAN CORPUSCULAR HGB CONC 32 g/dL (33-37); MEAN PLATELET VOLUME 9.2 fl (7.4-10.4); MONO # 0.7 (0.20-0.80); NEU # 5.7 (1.40-6.50); PLATELET COUNT 386 K/mm3 (130-400); RED BLOOD COUNT 4.62 M/mm3 (4.10-5.30); RED CELL DISTRIBUTION WIDTH 13.9 % (11.5-14.5)
[2018-08-10 22:21] LABS: CALCIUM 9.8 mg/dL (8.4-10.2); POTASSIUM 3.7 mmol/L (3.6-5.0); TOTAL BILIRUBIN 0.4 mg/dL (0.2-1.3); TOTAL PROTEIN 7.1 g/dL (6.3-8.2)
[2018-08-10 22:23] LABS: EOS # 0.7 (0.04-0.40)
[2018-08-10 22:51] LABS: PARTIAL THROMBOPLASTIN TIME 22.7 SECONDS (21.0-32.0); PROTHROMBIN TIME 9.9 SECONDS (9.0-12.0)
[2018-08-10 23:01] LABS: D-DIMER 0.5 mg/L FEU (0.15-0.50)
== END 2018-08-11 00:02 | disposition home or self-care (01) ==
LOC: ED 21:27
PROVIDERS: Nurse Practitioner
DX: M25.562 Pain in left knee (principal); J45.909 Unspecified asthma, uncomplicated; F41.9 Anxiety disorder, unspecified; F32.9 Major depressive disorder, single episode, unspecified; F31.9 Bipolar disorder, unspecified; F17.210 Nicotine dependence, cigarettes, uncomplicated; Z96.652 Presence of left artificial knee joint; W18.30XA Fall on same level, unspecified, initial encounter; Y92.009 Unspecified place in unspecified non-institutional (private) residence as the place of occurrence of the external cause

== ENCOUNTER 2018-08-14 19:15 | Observation (INO) | payer MEDICAID ==
[~2018-08-14] VITALS: Ht 157.5 cm; Wt 120.7 kg
[2018-08-14 20:12] LABS: EOS # 0.5 (0.04-0.40); EOS % 4.7 % (1.0-5.0); HEMATOCRIT 39.7 % (37.0-47.0); HEMOGLOBIN 12.9 g/dL (12.5-16.0); LYMPH# 3.2 (1.50-4.00); MEAN CELL VOLUME 87 fl (78-100); MEAN CORPUSCULAR HEMOGLOBIN 28 pg (27-31); MEAN CORPUSCULAR HGB CONC 33 g/dL (33-37); MEAN PLATELET VOLUME 9.6 fl (7.4-10.4); MONO # 0.6 (0.20-0.80); NEU # 5.9 (1.40-6.50); PLATELET COUNT 383 K/mm3 (130-400); RED BLOOD COUNT 4.57 M/mm3 (4.10-5.30); WHITE BLOOD COUNT 10.3 K/mm3 (4.8-10.8)
[2018-08-14 20:21] LABS: ALBUMIN 4.1 g/dL (3.5-5.0); ALT/SGPT 35 U/L (9-52); AST-SGOT 30 U/L (14-36); CALCIUM 9.4 mg/dL (8.4-10.2); CARBON DIOXIDE 27 mmol/L (22-30); GLUCOSE 120 mg/dL (65-105); POTASSIUM 3.4 mmol/L (3.6-5.0); SODIUM 140 mmol/L (137-145); TOTAL BILIRUBIN 0.3 mg/dL (0.2-1.3); TOTAL PROTEIN 7.2 g/dL (6.3-8.2)
[2018-08-14 20:23] LABS: ACETAMINOPHEN < 4 ug/mL (10-30); ALCOHOL IN-HOUSE < 10 mg/dL
[2018-08-14 20:32] LABS: PH-URINE 5.5 (5.0 - 8.0); URINE APPEARANCE HAZY; URINE BILIRUBIN NEGATIVE (NEGATIVE); URINE BLOOD 250 ery/uL (NEGATIVE); URINE COLOR YELLOW; URINE GLUCOSE NEGATIVE (NEGATIVE); URINE KETONE NEGATIVE (NEGATIVE); URINE LEUKOCYTE ESTERASE NEGATIVE (NEGATIVE); URINE NITRATE NEGATIVE (NEGATIVE); URINE PROTEIN(semi-quant) TRACE mg/dL (NEGATIVE); URINE UROBILINOGEN NORMAL (NORMAL)
[2018-08-14 23:26] VITALS: BP 113/78
[2018-08-15 02:48] VITALS: BP 112/71
[2018-08-15 06:22] VITALS: BP 105/71
[2018-08-15 11:20] VITALS: BP 110/76
[2018-08-15 15:20] VITALS: BP 107/51
[2018-08-15 18:31] VITALS: BP 107/74
[2018-08-15] MEDS ORDERED: GOOD NEIGHBOR200 M3 PO (18:44)
[2018-08-15] MEDS ORDERED: Patient's Own Medica PO (18:45)
== END 2018-08-15 19:12 | disposition home or self-care (01) ==
LOC: ED 19:15 → MED/SURG 22:43
PROVIDERS: ADMIT Family Medicine
DX: R45.851 Suicidal ideations (principal); F43.10 Post-traumatic stress disorder, unspecified; R29.6 Repeated falls; R53.81 Other malaise; E66.01 Morbid (severe) obesity due to excess calories; E05.00 Thyrotoxicosis with diffuse goiter without thyrotoxic crisis or storm; E28.2 Polycystic ovarian syndrome; F17.200 Nicotine dependence, unspecified, uncomplicated; Z88.7 Allergy status to serum and vaccine; Z88.5 Allergy status to narcotic agent; Z88.8 Allergy status to other drugs, medicaments and biological substances
CPT/HCPCS: G0378; J1650

== ENCOUNTER 2018-08-19 20:48 | Emergency (ER) | payer MEDICAID ==
[~2018-08-19 20:48] MED LIST changes: +GOOD NEIGHBOR200 M3 PO; +Patient's Own Medica PO
[2018-08-19] MEDS ORDERED: OXYCODONE HYDROC5 M1 PO (20:55)
[2018-08-19 21:42] LABS: BASO # 0.1 (0.02-0.10); EOS # 0.5 (0.04-0.40); EOS % 3.9 % (1.0-5.0); HEMATOCRIT 42.6 % (37.0-47.0); HEMOGLOBIN 14.1 g/dL (12.5-16.0); LYMPH# 3.9 (1.50-4.00); MEAN CELL VOLUME 87 fl (78-100); MEAN CORPUSCULAR HEMOGLOBIN 29 pg (27-31); MEAN CORPUSCULAR HGB CONC 33 g/dL (33-37); MEAN PLATELET VOLUME 9.5 fl (7.4-10.4); MONO # 0.8 (0.20-0.80); NEU # 8.2 (1.40-6.50); PLATELET COUNT 450 K/mm3 (130-400); RED CELL DISTRIBUTION WIDTH 13.7 % (11.5-14.5); WHITE BLOOD COUNT 13.5 K/mm3 (4.8-10.8)
[2018-08-19 21:56] LABS: ALBUMIN 4.4 g/dL (3.5-5.0); ALT/SGPT 28 U/L (9-52); AST-SGOT 28 U/L (14-36); CALCIUM 9.9 mg/dL (8.4-10.2); CARBON DIOXIDE 23 mmol/L (22-30); GLUCOSE 103 mg/dL (65-105); POTASSIUM 4.1 mmol/L (3.6-5.0); SODIUM 139 mmol/L (137-145); TOTAL BILIRUBIN 0.4 mg/dL (0.2-1.3); TOTAL PROTEIN 7.6 g/dL (6.3-8.2)
[2018-08-19 22:00] LABS: ACETAMINOPHEN < 4 ug/mL (10-30); ALCOHOL IN-HOUSE < 10 mg/dL
[2018-08-19 22:02] LABS: URINE APPEARANCE HAZY; URINE BILIRUBIN NEGATIVE (NEGATIVE); URINE BLOOD TRACE (NEGATIVE); URINE COLOR YELLOW; URINE GLUCOSE NEGATIVE (NEGATIVE); URINE KETONE NEGATIVE (NEGATIVE); URINE LEUKOCYTE ESTERASE NEGATIVE (NEGATIVE); URINE NITRATE NEGATIVE (NEGATIVE); URINE PROTEIN(semi-quant) TRACE mg/dL (NEGATIVE); URINE UROBILINOGEN NORMAL (NORMAL)
[2018-08-20 00:20] VITALS: BP 124/81
== END 2018-08-20 00:22 | disposition home or self-care (01) ==
LOC: ED 20:48
PROVIDERS: Physician Assistant
DX: F43.10 Post-traumatic stress disorder, unspecified (principal); R45.851 Suicidal ideations; F25.9 Schizoaffective disorder, unspecified; E05.00 Thyrotoxicosis with diffuse goiter without thyrotoxic crisis or storm; E28.2 Polycystic ovarian syndrome; F31.9 Bipolar disorder, unspecified; F17.210 Nicotine dependence, cigarettes, uncomplicated; Z91.410 Personal history of adult physical and sexual abuse

== ENCOUNTER 2018-08-20 18:53 | Observation (INO) | payer MEDICAID ==
[~2018-08-20] VITALS: Ht 157.5 cm; Wt 117.1 kg
[~2018-08-20 18:53] MED LIST changes: +OXYCODONE HYDROC5 M1 PO
[2018-08-20 23:31] VITALS: BP 110/67
[2018-08-21 03:00] VITALS: BP 110/75
[2018-08-21 06:36] VITALS: BP 115/77
[2018-08-21 11:00] VITALS: BP 116/77
[2018-08-21 15:00] VITALS: BP 125/80
[2018-08-21 18:44] VITALS: BP 147/81
[2018-08-21 22:47] VITALS: BP 124/83
[2018-08-22 06:38] VITALS: BP 131/83
[2018-08-22 11:12] VITALS: BP 117/81
[2018-08-22 15:06] VITALS: BP 110/74
== END 2018-08-22 15:43 | disposition swing bed (61) ==
LOC: ED 18:53 → MED/SURG 22:17
PROVIDERS: ADMIT Nurse Practitioner Family
DX: R45.851 Suicidal ideations (principal); R53.81 Other malaise; R62.50 Unspecified lack of expected normal physiological development in childhood; F43.10 Post-traumatic stress disorder, unspecified; F25.9 Schizoaffective disorder, unspecified; F41.8 Other specified anxiety disorders; E28.2 Polycystic ovarian syndrome; E05.00 Thyrotoxicosis with diffuse goiter without thyrotoxic crisis or storm; F17.210 Nicotine dependence, cigarettes, uncomplicated; Z90.49 Acquired absence of other specified parts of digestive tract; Z88.3 Allergy status to other anti-infective agents; Z88.1 Allergy status to other antibiotic agents; Z88.5 Allergy status to narcotic agent; Z88.8 Allergy status to other drugs, medicaments and biological substances
CPT/HCPCS: G0378

== ENCOUNTER 2018-08-21 18:40 | Inpatient (IN) | payer MEDICAID ==
[~2018-08-21] VITALS: Ht 157.5 cm; Wt 117.1 kg
[2018-08-22 15:52] VITALS: BP 110/74
[2018-08-22 18:40] VITALS: BP 126/75
== END 2018-08-22 20:21 | disposition left against medical advice (07) | DRG 948 ==
LOC: MED/SURG 18:40
PROVIDERS: ADMIT Family Medicine
DX: R53.81 Other malaise (principal); R45.851 Suicidal ideations; R44.0 Auditory hallucinations; R26.9 Unspecified abnormalities of gait and mobility; Z47.89 Encounter for other orthopedic aftercare; Z98.890 Other specified postprocedural states; F43.10 Post-traumatic stress disorder, unspecified; F32.9 Major depressive disorder, single episode, unspecified; F31.9 Bipolar disorder, unspecified

== ENCOUNTER 2018-08-26 20:51 | Emergency (ER) | payer MEDICAID ==
[2018-08-26 21:15] VITALS: BP 114/72
[2018-08-26 21:48] LABS: EOS # 0.4 (0.04-0.40); EOS % 3.9 % (1.0-5.0); HEMATOCRIT 39.4 % (37.0-47.0); HEMOGLOBIN 12.9 g/dL (12.5-16.0); LYMPH# 3.7 (1.50-4.00); MEAN CELL VOLUME 87 fl (78-100); MEAN CORPUSCULAR HEMOGLOBIN 28 pg (27-31); MEAN CORPUSCULAR HGB CONC 33 g/dL (33-37); MEAN PLATELET VOLUME 9.3 fl (7.4-10.4); MONO # 0.7 (0.20-0.80); NEU # 5.4 (1.40-6.50); PLATELET COUNT 363 K/mm3 (130-400); RED BLOOD COUNT 4.55 M/mm3 (4.10-5.30); RED CELL DISTRIBUTION WIDTH 13.1 % (11.5-14.5); WHITE BLOOD COUNT 10.2 K/mm3 (4.8-10.8)
[2018-08-26 21:58] LABS: CALCIUM 9.2 mg/dL (8.4-10.2); CARBON DIOXIDE 26 mmol/L (22-30); GLUCOSE 83 mg/dL (65-105); SODIUM 140 mmol/L (137-145)
[2018-08-26 22:01] LABS: ACETAMINOPHEN < 4 ug/mL (10-30); ALCOHOL IN-HOUSE < 10 mg/dL
[2018-08-26] MEDS ORDERED: OXYCODONE PO (22:15)
[2018-08-26] MEDS ORDERED: KLONOPIN 1MG1 MG PO (22:16)
[2018-08-27] MEDS ORDERED: PHENERGAN 25 TA25 MG PO (14:17)
== END 2018-08-27 09:08 | disposition home or self-care (01) ==
LOC: ED 20:51
PROVIDERS: Physician Assistant
DX: T14.91XA Suicide attempt, initial encounter (principal); T18.2XXA Foreign body in stomach, initial encounter; F25.9 Schizoaffective disorder, unspecified; F43.10 Post-traumatic stress disorder, unspecified; F41.9 Anxiety disorder, unspecified; F32.9 Major depressive disorder, single episode, unspecified; F17.210 Nicotine dependence, cigarettes, uncomplicated; Z88.2 Allergy status to sulfonamides; Z88.8 Allergy status to other drugs, medicaments and biological substances; Z90.49 Acquired absence of other specified parts of digestive tract; X83.8XXA Intentional self-harm by other specified means, initial encounter

== ENCOUNTER 2018-08-27 11:04 | Emergency (ER) | payer MEDICAID ==
[~2018-08-27 11:04] MED LIST changes: +OXYCODONE PO
[2018-08-27 11:47] LABS: EOS # 0.4 (0.04-0.40); EOS % 3.9 % (1.0-5.0); HEMATOCRIT 43.9 % (37.0-47.0); HEMOGLOBIN 14.2 g/dL (12.5-16.0); LYMPH# 2.1 (1.50-4.00); MEAN CELL VOLUME 86 fl (78-100); MEAN CORPUSCULAR HEMOGLOBIN 28 pg (27-31); MEAN CORPUSCULAR HGB CONC 32 g/dL (33-37); MEAN PLATELET VOLUME 9.5 fl (7.4-10.4); MONO # 0.5 (0.20-0.80); PLATELET COUNT 361 K/mm3 (130-400); RED BLOOD COUNT 5.08 M/mm3 (4.10-5.30); RED CELL DISTRIBUTION WIDTH 13.3 % (11.5-14.5)
[2018-08-27 12:18] LABS: CALCIUM 9.5 mg/dL (8.4-10.2); POTASSIUM 4.3 mmol/L (3.6-5.0)
[2018-08-27] MEDS ORDERED: PHENERGAN 25 TA25 MG PO (14:17)
[2018-08-27 14:52] VITALS: BP 109/76
== END 2018-08-27 14:42 | disposition home or self-care (01) ==
LOC: ED 11:04
PROVIDERS: Physician Assistant
DX: T14.91XA Suicide attempt, initial encounter (principal); T18.2XXA Foreign body in stomach, initial encounter; R11.2 Nausea with vomiting, unspecified; X83.8XXA Intentional self-harm by other specified means, initial encounter

== ENCOUNTER 2018-08-28 21:27 | Emergency (ER) | payer MEDICAID ==
[~2018-08-28 21:27] MED LIST changes: +PHENERGAN 25 TA25 MG PO
[2018-08-28 21:56] LABS: BASO # 0.1 (0.02-0.10); EOS # 0.6 (0.04-0.40); EOS % 3.7 % (1.0-5.0); HEMATOCRIT 43.1 % (37.0-47.0); HEMOGLOBIN 14.3 g/dL (12.5-16.0); MEAN CELL VOLUME 86 fl (78-100); MEAN CORPUSCULAR HEMOGLOBIN 29 pg (27-31); MEAN CORPUSCULAR HGB CONC 33 g/dL (33-37); MEAN PLATELET VOLUME 9.6 fl (7.4-10.4); NEU # 8.7 (1.40-6.50); PLATELET COUNT 390 K/mm3 (130-400); RED CELL DISTRIBUTION WIDTH 13.3 % (11.5-14.5)
[2018-08-28 22:02] LABS: LYMPH# 4.7 (1.50-4.00)
[2018-08-28 22:06] LABS: ALBUMIN 4.3 g/dL (3.5-5.0); ALT/SGPT 31 U/L (9-52); AST-SGOT 24 U/L (14-36); CALCIUM 9.8 mg/dL (8.4-10.2); CARBON DIOXIDE 27 mmol/L (22-30); GLUCOSE 84 mg/dL (65-105); SODIUM 140 mmol/L (137-145); TOTAL BILIRUBIN 0.3 mg/dL (0.2-1.3); TOTAL PROTEIN 7.5 g/dL (6.3-8.2)
[2018-08-28 22:08] LABS: ACETAMINOPHEN < 4 ug/mL (10-30)
[2018-08-29 00:03] VITALS: BP 121/85
== END 2018-08-29 00:04 | disposition home or self-care (01) ==
LOC: ED 21:27
PROVIDERS: Family Medicine
DX: R45.851 Suicidal ideations (principal); K21.9 Gastro-esophageal reflux disease without esophagitis; E28.2 Polycystic ovarian syndrome; F43.10 Post-traumatic stress disorder, unspecified; F31.9 Bipolar disorder, unspecified; F25.9 Schizoaffective disorder, unspecified; F17.210 Nicotine dependence, cigarettes, uncomplicated; Z90.49 Acquired absence of other specified parts of digestive tract

== ENCOUNTER 2018-09-06 21:02 | Emergency (ER) | payer MEDICAID ==
[~2018-09-06] VITALS: Ht 157.5 cm; Wt 118.2 kg
[2018-09-06 22:26] LABS: EOS # 0.5 (0.04-0.40); EOS % 3.8 % (1.0-5.0); HEMATOCRIT 40.9 % (37.0-47.0); HEMOGLOBIN 13.2 g/dL (12.5-16.0); LYMPH# 3.6 (1.50-4.00); MEAN CELL VOLUME 87 fl (78-100); MEAN CORPUSCULAR HEMOGLOBIN 28 pg (27-31); MEAN CORPUSCULAR HGB CONC 32 g/dL (33-37); MEAN PLATELET VOLUME 9.2 fl (7.4-10.4); NEU # 6.8 (1.40-6.50); PLATELET COUNT 381 K/mm3 (130-400); RED BLOOD COUNT 4.73 M/mm3 (4.10-5.30); RED CELL DISTRIBUTION WIDTH 13.4 % (11.5-14.5); WHITE BLOOD COUNT 11.8 K/mm3 (4.8-10.8)
[2018-09-06 22:39] LABS: URINE APPEARANCE HAZY; URINE BILIRUBIN NEGATIVE (NEGATIVE); URINE BLOOD NEGATIVE (NEGATIVE); URINE COLOR YELLOW; URINE GLUCOSE NEGATIVE (NEGATIVE); URINE KETONE NEGATIVE (NEGATIVE); URINE LEUKOCYTE ESTERASE NEGATIVE (NEGATIVE); URINE MUCUS PRESENT (NOT PRESENT); URINE NITRATE NEGATIVE (NEGATIVE); URINE PROTEIN(semi-quant) TRACE mg/dL (NEGATIVE); URINE UROBILINOGEN NORMAL (NORMAL)
[2018-09-06 22:39] LABS: ALBUMIN 3.9 g/dL (3.5-5.0); ALT/SGPT 31 U/L (9-52); AST-SGOT 19 U/L (14-36); CALCIUM 9.6 mg/dL (8.4-10.2); CARBON DIOXIDE 29 mmol/L (22-30); GLUCOSE 77 mg/dL (65-105); SODIUM 143 mmol/L (137-145); TOTAL BILIRUBIN 0.3 mg/dL (0.2-1.3); TOTAL PROTEIN 6.8 g/dL (6.3-8.2)
[2018-09-06 22:40] LABS: ACETAMINOPHEN < 4 ug/mL (10-30)
[2018-09-07 00:48] VITALS: BP 145/82
--- NOTE | 2018-09-08 12:34 | NUR ---
Provider reports that pt was in ED 2x yesterday and the second time she claimed to have OD'd by taking 12 Tramadol tablets. Pt was referred to [facility] Screener who approved pt as having a safe plan and appropriate for home discharge. Pt's behavior health advocate states to this nurse that both she and the [facility] staff were on the line w/ pt when she took the Tramadol and all they were able to tell her at that point was to go to the ED. Agueda Peters / [facility] [phone] calls this nurse to state that pt was in ED and she has concerns and wants to know pt's disposition. This is reported to her and that as [facility] is not an IP psyche hospital we can only attempt to try and obtain placement for pt, except that [facility] screens approving pt as having a safe plan and safe for discharge do not meet any criteria for hospital admission and if pt is medically safe pt is discharged to her current home situation of independent living w/ HH which [facility] did arrange for her. [facility] staff has had a teleconference on 08-27-18 w/ [facility] staff; [facility] insurance behavior health advocate, Agueda Peters; [facility] social worker health services, Cristiana Peterson; [facility], Tia Walls and [facility] [employer] Operator Helper, Ella Cope and all of pt issues were discussed. Community health healthcare recruiter all recommend that pt be assigned a 24/7 caregiver attendent and a guardian who will direct her care to help with her repeated ED visits for suicidal ideation and suicide attempts, and repeated AMA hospital dispositions which show a definite inability to direct or manage her own care, as w/o a guardian even if she is admitted for the IP psyche care that is seen as potentially needed, she is currently able to check herself out AMA of any instution and until she receive either an attendant or IP or instutional care and until her problems are identified, under control and/or resolved w/ the psyche treatment she needs this behavior will not only continue, but has continued and escalated to 12 ED visits @ [facility], 3 OBS admissions and 1 IP admission since July. [facility] will continue to administer the care for this pt as she presents for care, but [facility] is again submitting an APS report reporting the situation as noted above and are requesting again that a guardian be assigned to this patient so the she will receive the psychiatric care that will help her resolve these type of behaviors. APS report # [id number].
== END 2018-09-07 00:48 | disposition home or self-care (01) ==
LOC: ED 21:02
PROVIDERS: Family Medicine
DX: R45.851 Suicidal ideations (principal); F60.9 Personality disorder, unspecified; F32.9 Major depressive disorder, single episode, unspecified; F43.10 Post-traumatic stress disorder, unspecified; E28.2 Polycystic ovarian syndrome; F17.210 Nicotine dependence, cigarettes, uncomplicated; K21.9 Gastro-esophageal reflux disease without esophagitis; Z90.49 Acquired absence of other specified parts of digestive tract

== ENCOUNTER 2018-09-12 19:43 | Emergency (ER) | payer MEDICAID ==
[~2018-09-12] VITALS: Ht 157.5 cm; Wt 119.4 kg
[2018-09-12 21:22] VITALS: BP 141/92
== END 2018-09-12 21:22 | disposition home or self-care (01) ==
LOC: ED 19:43
DX: S83.412A Sprain of medial collateral ligament of left knee, initial encounter (principal); Z98.890 Other specified postprocedural states; W01.0XXA Fall on same level from slipping, tripping and stumbling without subsequent striking against object, initial encounter; Y92.009 Unspecified place in unspecified non-institutional (private) residence as the place of occurrence of the external cause
CPT/HCPCS: 15977; L1830

== ENCOUNTER 2018-09-14 17:23 | Emergency (ER) | payer MEDICAID ==
[2018-09-14 17:51] LABS: EOS # 0.3 (0.04-0.40); EOS % 2.7 % (1.0-5.0); HEMATOCRIT 40.8 % (37.0-47.0); HEMOGLOBIN 13.7 g/dL (12.5-16.0); LYMPH# 2.8 (1.50-4.00); MEAN CELL VOLUME 86 fl (78-100); MEAN CORPUSCULAR HEMOGLOBIN 29 pg (27-31); MEAN CORPUSCULAR HGB CONC 34 g/dL (33-37); MEAN PLATELET VOLUME 9.6 fl (7.4-10.4); MONO # 0.8 (0.20-0.80); PLATELET COUNT 365 K/mm3 (130-400); RED BLOOD COUNT 4.77 M/mm3 (4.10-5.30); RED CELL DISTRIBUTION WIDTH 13.4 % (11.5-14.5)
[2018-09-14 18:07] LABS: ACETAMINOPHEN 12 ug/mL (10-30); ALBUMIN 4.2 g/dL (3.5-5.0); AST-SGOT 20 U/L (14-36); CALCIUM 9.7 mg/dL (8.4-10.2); CARBON DIOXIDE 25 mmol/L (22-30); GLUCOSE 95 mg/dL (65-105); POTASSIUM 3.7 mmol/L (3.6-5.0); SODIUM 140 mmol/L (137-145); TOTAL BILIRUBIN 0.4 mg/dL (0.2-1.3); TOTAL PROTEIN 7.5 g/dL (6.3-8.2)
[2018-09-14 18:09] LABS: ALT/SGPT < 3 U/L (9-52)
[2018-09-14 18:10] LABS: ALCOHOL IN-HOUSE < 10 mg/dL
[2018-09-14 18:32] LABS: URINE COLOR YELLOW
[2018-09-14 18:33] LABS: URINE APPEARANCE HAZY; URINE BILIRUBIN NEGATIVE (NEGATIVE); URINE BLOOD NEGATIVE (NEGATIVE); URINE GLUCOSE NEGATIVE (NEGATIVE); URINE KETONE NEGATIVE (NEGATIVE); URINE LEUKOCYTE ESTERASE TRACE (NEGATIVE); URINE NITRATE NEGATIVE (NEGATIVE); URINE PROTEIN(semi-quant) TRACE mg/dL (NEGATIVE); URINE UROBILINOGEN NORMAL (NORMAL); URINE WBC 0-1 /hpf (0-3)
[2018-09-14 18:34] LABS: URINE MUCUS PRESENT (NOT PRESENT)
[2018-09-14 23:40] VITALS: BP 131/86
== END 2018-09-14 23:44 | disposition home or self-care (01) ==
LOC: ED 17:23
PROVIDERS: Nurse Practitioner
DX: T39.1X2A Poisoning by 4-Aminophenol derivatives, intentional self-harm, initial encounter (principal); T49.0X2A Poisoning by local antifungal, anti-infective and anti-inflammatory drugs, intentional self-harm, initial encounter; F39 Unspecified mood [affective] disorder; R44.0 Auditory hallucinations; F31.9 Bipolar disorder, unspecified; F41.9 Anxiety disorder, unspecified; F43.10 Post-traumatic stress disorder, unspecified; E28.2 Polycystic ovarian syndrome; F17.210 Nicotine dependence, cigarettes, uncomplicated; Z90.49 Acquired absence of other specified parts of digestive tract

== ENCOUNTER 2018-10-31 21:41 | Emergency (ER) | payer MEDICAID ==
[2018-10-31] MEDS ORDERED: VRAYLAR1.5 MG PO (22:02)
[2018-10-31] MEDS ORDERED: BUSPIRONE HYDRO10 MG PO (22:02)
[2018-10-31] MEDS ORDERED: PROPYLTHIOURACI50 M1 PO (22:03)
[2018-10-31] MEDS ORDERED: TYLENOL 325MG325 MG PO (22:03)
[2018-10-31] MEDS ORDERED: PREDNISONE20 M1 PO (23:01)
[2018-10-31] MEDS ORDERED: CETIRIZINE HCL10 MG PO (23:01)
[2018-10-31 23:08] VITALS: BP 147/85
[2018-11-02] MEDS ORDERED: NORCO 325 MG-51 TA1 PO (11:41)
== END 2018-10-31 23:08 | disposition home or self-care (01) ==
LOC: ED 21:41
DX: J45.909 Unspecified asthma, uncomplicated (principal); K21.9 Gastro-esophageal reflux disease without esophagitis; E05.00 Thyrotoxicosis with diffuse goiter without thyrotoxic crisis or storm; E28.2 Polycystic ovarian syndrome; F29 Unspecified psychosis not due to a substance or known physiological condition; F17.210 Nicotine dependence, cigarettes, uncomplicated; Z98.890 Other specified postprocedural states

== ENCOUNTER 2018-11-05 22:02 | Emergency (ER) | payer MEDICAID ==
[~2018-11-05] VITALS: Ht 157.5 cm; Wt 118.2 kg
[~2018-11-05 22:02] MED LIST changes: +BUSPIRONE HYDRO10 MG PO; +CETIRIZINE HCL10 MG PO; +TYLENOL 325MG325 MG PO; +VRAYLAR1.5 MG PO
[2018-11-05 22:08] VITALS: BP 136/111
[2018-11-05] MEDS ORDERED: PROTONIX TR40 M1 PO (22:34)
[2018-11-05] MEDS ORDERED: MUCINEX D1 TER PO (22:45)
[2018-11-05 23:21] LABS: EOS # 0.2 (0.04-0.40); EOS % 1.6 % (1.0-5.0); HEMATOCRIT 40.4 % (37.0-47.0); HEMOGLOBIN 13.5 g/dL (12.5-16.0); MEAN CELL VOLUME 86 fl (78-100); MEAN CORPUSCULAR HEMOGLOBIN 29 pg (27-31); MEAN CORPUSCULAR HGB CONC 33 g/dL (33-37); MEAN PLATELET VOLUME 9.4 fl (7.4-10.4); MONO # 0.9 (0.20-0.80); NEU # 8.6 (1.40-6.50); PLATELET COUNT 421 K/mm3 (130-400); RED BLOOD COUNT 4.72 M/mm3 (4.10-5.30); RED CELL DISTRIBUTION WIDTH 14.5 % (11.5-14.5); WHITE BLOOD COUNT 14.6 K/mm3 (4.8-10.8)
[2018-11-05 23:30] LABS: ALBUMIN 4.1 g/dL (3.5-5.0); ALT/SGPT 55 U/L (9-52); AST-SGOT 32 U/L (14-36); CALCIUM 9.2 mg/dL (8.4-10.2); CARBON DIOXIDE 27 mmol/L (22-30); GLUCOSE 121 mg/dL (65-105); POTASSIUM 3.8 mmol/L (3.6-5.0); SODIUM 138 mmol/L (137-145); TOTAL BILIRUBIN 0.3 mg/dL (0.2-1.3); TOTAL PROTEIN 7.6 g/dL (6.3-8.2)
[2018-11-05 23:35] LABS: ACETAMINOPHEN < 4 ug/mL (10-30); ALCOHOL IN-HOUSE < 10 mg/dL; LYMPH# 4.8 (1.50-4.00)
== END 2018-11-06 06:04 | disposition home or self-care (01) ==
LOC: ED 22:02
PROVIDERS: Nurse Practitioner Family
DX: R45.851 Suicidal ideations (principal); R44.0 Auditory hallucinations; J01.90 Acute sinusitis, unspecified; J40 Bronchitis, not specified as acute or chronic; F31.9 Bipolar disorder, unspecified; F41.9 Anxiety disorder, unspecified; E28.2 Polycystic ovarian syndrome; F43.10 Post-traumatic stress disorder, unspecified; F17.210 Nicotine dependence, cigarettes, uncomplicated; E05.00 Thyrotoxicosis with diffuse goiter without thyrotoxic crisis or storm; Z91.5 Personal history of self-harm; Z79.51 Long term (current) use of inhaled steroids

== ENCOUNTER 2018-11-23 17:34 | Emergency (ER) | payer MEDICAID ==
[~2018-11-23 17:34] MED LIST changes: +MUCINEX D1 TER PO
[2018-11-23 18:11] LABS: EOS # 0.5 (0.04-0.40); EOS % 4.7 % (1.0-5.0); HEMATOCRIT 41.6 % (37.0-47.0); HEMOGLOBIN 13.5 g/dL (12.5-16.0); LYMPH# 3.6 (1.50-4.00); MEAN CELL VOLUME 86 fl (78-100); MEAN CORPUSCULAR HEMOGLOBIN 28 pg (27-31); MEAN CORPUSCULAR HGB CONC 33 g/dL (33-37); MEAN PLATELET VOLUME 9.3 fl (7.4-10.4); MONO # 0.7 (0.20-0.80); NEU # 6.4 (1.40-6.50); PLATELET COUNT 362 K/mm3 (130-400); RED BLOOD COUNT 4.82 M/mm3 (4.10-5.30); RED CELL DISTRIBUTION WIDTH 14.2 % (11.5-14.5); WHITE BLOOD COUNT 11.2 K/mm3 (4.8-10.8)
[2018-11-23 18:33] LABS: ALBUMIN 3.8 g/dL (3.5-5.0); CALCIUM 9.6 mg/dL (8.4-10.2); POTASSIUM 3.7 mmol/L (3.5-5.1); TOTAL BILIRUBIN 0.3 mg/dL (0.2-1.2); TOTAL PROTEIN 6.6 g/dL (6.4-8.3)
[2018-11-23 19:00] LABS: URINE APPEARANCE CLEAR; URINE COLOR YELLOW
[2018-11-23 19:01] LABS: URINE BILIRUBIN NEGATIVE (NEGATIVE); URINE BLOOD NEGATIVE (NEGATIVE); URINE GLUCOSE NEGATIVE (NEGATIVE); URINE KETONE NEGATIVE (NEGATIVE); URINE LEUKOCYTE ESTERASE TRACE (NEGATIVE); URINE NITRATE NEGATIVE (NEGATIVE); URINE PROTEIN(semi-quant) NEGATIVE (NEGATIVE); URINE UROBILINOGEN NORMAL (NORMAL)
[2018-11-23 19:02] LABS: CLUE CELLS PRESENT (Not Observd)
[2018-11-23] MEDS ORDERED: DOXYCYCLINE MO100 M3 PO (19:37)
[2018-11-23 19:46] VITALS: BP 137/78
== END 2018-11-23 19:45 | disposition home or self-care (01) ==
LOC: ED 17:34
PROVIDERS: Nurse Practitioner
DX: N73.9 Female pelvic inflammatory disease, unspecified (principal); F41.9 Anxiety disorder, unspecified; F31.9 Bipolar disorder, unspecified; F43.10 Post-traumatic stress disorder, unspecified; E05.00 Thyrotoxicosis with diffuse goiter without thyrotoxic crisis or storm; F17.210 Nicotine dependence, cigarettes, uncomplicated; Z90.49 Acquired absence of other specified parts of digestive tract; Z98.890 Other specified postprocedural states
CPT/HCPCS: J0696; Q0111

== ENCOUNTER 2018-12-04 18:00 | Emergency (ER) | payer MEDICAID ==
[~2018-12-04] VITALS: Ht 157.5 cm; Wt 118.2 kg
[~2018-12-04 18:00] MED LIST changes: +DOXYCYCLINE MO100 M3 PO
[2018-12-04] MEDS ORDERED: ZYRTEC ALLERGY10 MG PO (18:14)
[2018-12-04 19:03] LABS: PH-URINE 5.5 (5.0 - 8.0); URINE APPEARANCE HAZY; URINE COLOR YELLOW
[2018-12-04 19:04] LABS: URINE BILIRUBIN NEGATIVE (NEGATIVE); URINE BLOOD TRACE (NEGATIVE); URINE GLUCOSE NEGATIVE (NEGATIVE); URINE KETONE NEGATIVE (NEGATIVE); URINE LEUKOCYTE ESTERASE TRACE (NEGATIVE); URINE NITRATE NEGATIVE (NEGATIVE); URINE PROTEIN(semi-quant) NEGATIVE (NEGATIVE); URINE UROBILINOGEN NORMAL (NORMAL)
[2018-12-04] MEDS ORDERED: DIFLUCAN200 M1 PO (19:27)
[2018-12-04] MEDS ORDERED: PENICILLIN-VK250 MG PO (19:27)
[2018-12-04] MEDS ORDERED: TRAMADOL 50 MG TAB PO (19:27)
[2018-12-04] MEDS ORDERED: WALKER (19:29)
[2018-12-04 19:40] VITALS: BP 122/71
== END 2018-12-04 19:40 | disposition home or self-care (01) ==
LOC: ED 18:00
PROVIDERS: Family Medicine
DX: K08.89 Other specified disorders of teeth and supporting structures (principal); M25.562 Pain in left knee; R30.0 Dysuria; N76.0 Acute vaginitis; F99 Mental disorder, not otherwise specified; F17.210 Nicotine dependence, cigarettes, uncomplicated; Z98.890 Other specified postprocedural states

== ENCOUNTER 2018-12-05 18:47 | Emergency (ER) | payer MEDICAID ==
[~2018-12-05] VITALS: Ht 157.5 cm; Wt 118.2 kg
[~2018-12-05 18:47] MED LIST changes: +DIFLUCAN200 M1 PO; +PENICILLIN-VK250 MG PO; +WALKER; +ZYRTEC ALLERGY10 MG PO
[2018-12-05 21:46] VITALS: BP 105/47
== END 2018-12-05 21:46 | disposition home or self-care (01) ==
LOC: ED 18:47
DX: F41.9 Anxiety disorder, unspecified (principal); F43.10 Post-traumatic stress disorder, unspecified; E78.5 Hyperlipidemia, unspecified; K21.9 Gastro-esophageal reflux disease without esophagitis; E28.2 Polycystic ovarian syndrome; F17.210 Nicotine dependence, cigarettes, uncomplicated; Z98.890 Other specified postprocedural states; Z95.1 Presence of aortocoronary bypass graft

== ENCOUNTER 2018-12-06 21:16 | Observation (INO) | payer MEDICAID ==
[~2018-12-06] VITALS: Ht 157.5 cm; Wt 116.1 kg
[2018-12-07 01:00] VITALS: BP 122/71
[2018-12-07 02:52] VITALS: BP 93/60
[2018-12-07 06:21] VITALS: BP 111/77
[2018-12-07 09:59] VITALS: BP 126/85
== END 2018-12-07 10:04 | disposition home health service (06) ==
LOC: ED 21:16 → MED/SURG 12-07 00:52
PROVIDERS: ADMIT Family Medicine
DX: T18.198A Other foreign object in esophagus causing other injury, initial encounter (principal); K21.9 Gastro-esophageal reflux disease without esophagitis; E05.90 Thyrotoxicosis, unspecified without thyrotoxic crisis or storm; N73.9 Female pelvic inflammatory disease, unspecified; Z90.49 Acquired absence of other specified parts of digestive tract; Z88.7 Allergy status to serum and vaccine; Z88.5 Allergy status to narcotic agent; Z88.1 Allergy status to other antibiotic agents; Z88.8 Allergy status to other drugs, medicaments and biological substances
CPT/HCPCS: G0378

== ENCOUNTER 2018-12-08 18:25 | Emergency (ER) | payer MEDICAID ==
[~2018-12-08] VITALS: Ht 157.5 cm; Wt 115.9 kg
[2018-12-08 18:53] LABS: BASO # 0.1 (0.02-0.10); EOS # 0.4 (0.04-0.40); HEMATOCRIT 42.1 % (37.0-47.0); HEMOGLOBIN 13.6 g/dL (12.5-16.0); LYMPH# 3.4 (1.50-4.00); MEAN CELL VOLUME 87 fl (78-100); MEAN CORPUSCULAR HEMOGLOBIN 28 pg (27-31); MEAN CORPUSCULAR HGB CONC 32 g/dL (33-37); MEAN PLATELET VOLUME 9.4 fl (7.4-10.4); MONO # 0.6 (0.20-0.80); NEU # 5.2 (1.40-6.50); PLATELET COUNT 388 K/mm3 (130-400); RED BLOOD COUNT 4.84 M/mm3 (4.10-5.30); RED CELL DISTRIBUTION WIDTH 14.1 % (11.5-14.5); WHITE BLOOD COUNT 9.6 K/mm3 (4.8-10.8)
[2018-12-08 19:07] LABS: ALBUMIN 3.8 g/dL (3.5-5.0); ALT/SGPT 31 U/L (0-55); AST-SGOT 24 U/L (5-34); CALCIUM 9.7 mg/dL (8.4-10.2); CARBON DIOXIDE 24 mmol/L (22-29); GLUCOSE 97 mg/dL (65-105); POTASSIUM 3.7 mmol/L (3.5-5.1); SODIUM 142 mmol/L (136-145); TOTAL PROTEIN 6.2 g/dL (6.4-8.3)
[2018-12-08 19:20] LABS: ACETAMINOPHEN < 1 ug/mL; ALCOHOL IN-HOUSE < 10 mg/dL (<10); TOTAL BILIRUBIN 0.1 mg/dL (0.2-1.2)
[2018-12-08 23:17] VITALS: BP 123/81
== END 2018-12-08 23:18 | disposition home or self-care (01) ==
LOC: ED 18:25
PROVIDERS: Nurse Practitioner Family
DX: R45.851 Suicidal ideations (principal); F20.9 Schizophrenia, unspecified; F41.9 Anxiety disorder, unspecified; F31.9 Bipolar disorder, unspecified; E05.00 Thyrotoxicosis with diffuse goiter without thyrotoxic crisis or storm; E28.2 Polycystic ovarian syndrome; F43.10 Post-traumatic stress disorder, unspecified; F17.210 Nicotine dependence, cigarettes, uncomplicated; Z91.5 Personal history of self-harm; Z90.49 Acquired absence of other specified parts of digestive tract; Z98.890 Other specified postprocedural states

== ENCOUNTER 2019-01-02 13:52 | Emergency (ER) | payer MEDICAID ==
[2019-01-02 18:34] VITALS: BP 142/78
[2019-01-02] MEDS ORDERED: [UNRECOGNIZED DRUG - OTHER] PO (18:36)
== END 2019-01-02 18:37 | disposition home or self-care (01) ==
LOC: ED 13:52
DX: F41.9 Anxiety disorder, unspecified (principal); F43.10 Post-traumatic stress disorder, unspecified; E05.00 Thyrotoxicosis with diffuse goiter without thyrotoxic crisis or storm; F17.210 Nicotine dependence, cigarettes, uncomplicated; Z04.41 Encounter for examination and observation following alleged adult rape

== ENCOUNTER 2019-03-18 15:55 | Emergency (ER) | payer MEDICAID ==
[~2019-03-18 15:55] MED LIST changes: +[UNRECOGNIZED DRUG - OTHER] PO
[2019-03-18 19:50] VITALS: BP 113/74
== END 2019-03-18 19:52 | disposition home or self-care (01) ==
LOC: ED 15:55
DX: M25.561 Pain in right knee (principal); H10.9 Unspecified conjunctivitis; F31.9 Bipolar disorder, unspecified; F41.9 Anxiety disorder, unspecified; F43.10 Post-traumatic stress disorder, unspecified; F17.210 Nicotine dependence, cigarettes, uncomplicated; Z98.890 Other specified postprocedural states

== ENCOUNTER 2019-03-19 17:02 | Emergency (ER) | payer MEDICAID ==
[~2019-03-19] VITALS: Ht 157.5 cm; Wt 121.2 kg
[2019-03-19 17:48] LABS: BASO # 0.1 (0.02-0.10); EOS # 0.4 (0.04-0.40); EOS % 3.5 % (1.0-5.0); HEMATOCRIT 43.6 % (37.0-47.0); HEMOGLOBIN 14.4 g/dL (12.5-16.0); LYMPH# 3.3 (1.50-4.00); MEAN CELL VOLUME 88 fl (78-100); MEAN CORPUSCULAR HEMOGLOBIN 29 pg (27-31); MEAN CORPUSCULAR HGB CONC 33 g/dL (33-37); MEAN PLATELET VOLUME 9.8 fl (7.4-10.4); MONO # 0.6 (0.20-0.80); NEU # 6.1 (1.40-6.50); PLATELET COUNT 338 K/mm3 (130-400); RED BLOOD COUNT 4.95 M/mm3 (4.10-5.30); RED CELL DISTRIBUTION WIDTH 13.6 % (11.5-14.5); WHITE BLOOD COUNT 10.4 K/mm3 (4.8-10.8)
[2019-03-19 17:52] LABS: POTASSIUM 3.8 mmol/L (3.5-5.1); SODIUM 142 mmol/L (136-145)
[2019-03-19 17:53] LABS: CALCIUM 9.6 mg/dL (8.3-10.5)
[2019-03-19 17:54] LABS: GLUCOSE 92 mg/dL (65-105); TOTAL PROTEIN 7.2 g/dL (6.4-8.3)
[2019-03-19 17:55] LABS: CARBON DIOXIDE 26 mmol/L (22-29)
[2019-03-19 17:56] LABS: TOTAL BILIRUBIN 0.2 mg/dL (0.2-1.2)
[2019-03-19 17:59] LABS: AST-SGOT 18 U/L (5-34)
[2019-03-19 18:01] LABS: ALT/SGPT 24 U/L (0-55)
[2019-03-19 18:07] LABS: ACETAMINOPHEN < 1 ug/mL; ALCOHOL IN-HOUSE < 10 mg/dL (<10)
[2019-03-19 21:10] VITALS: BP 159/71
[2019-03-20] MEDS ORDERED: PREDNISONE20 MG PO (15:11)
[2019-03-20] MEDS ORDERED: IPRATROPIUM BROM3 M1 IH (15:11)
[2019-03-20] MEDS ORDERED: CEFDINIR300 MG PO (15:11)
[2019-03-20] MEDS ORDERED: NEB INH (15:11)
[2019-03-20] MEDS ORDERED: [UNRECOGNIZED DRUG - REMARK] OP (15:12)
== END 2019-03-19 21:10 | disposition home or self-care (01) ==
LOC: ED 17:02
PROVIDERS: Nurse Practitioner Primary Care
DX: R45.851 Suicidal ideations (principal); F17.210 Nicotine dependence, cigarettes, uncomplicated

== ENCOUNTER 2019-03-20 14:08 | Emergency (ER) | payer MEDICAID ==
[2019-03-20] MEDS ORDERED: IPRATROPIUM BROM3 M1 IH (15:11)
[2019-03-20] MEDS ORDERED: NEB INH (15:11)
[2019-03-20] MEDS ORDERED: CEFDINIR300 MG PO (15:11)
[2019-03-20] MEDS ORDERED: PREDNISONE20 MG PO (15:11)
[2019-03-20] MEDS ORDERED: [UNRECOGNIZED DRUG - REMARK] OP (15:12)
[2019-03-20 15:43] VITALS: BP 125/74
== END 2019-03-20 15:43 | disposition home or self-care (01) ==
LOC: ED 14:08
DX: G89.29 Other chronic pain (principal); M25.561 Pain in right knee; H66.93 Otitis media, unspecified, bilateral; H10.022 Other mucopurulent conjunctivitis, left eye; Z98.890 Other specified postprocedural states
CPT/HCPCS: 15976; L1830

== ENCOUNTER 2019-03-22 12:00 | Emergency (ER) | payer MEDICAID ==
[~2019-03-22 12:00] MED LIST changes: +CEFDINIR300 MG PO; +NEB INH; +PREDNISONE20 MG PO; +[UNRECOGNIZED DRUG - REMARK] OP
[2019-03-22 12:36] LABS: BASO # 0.1 (0.02-0.10); EOS # 0.4 (0.04-0.40); EOS % 4.8 % (1.0-5.0); HEMOGLOBIN 13.9 g/dL (12.5-16.0); LYMPH# 2.6 (1.50-4.00); MEAN CELL VOLUME 88 fl (78-100); MEAN CORPUSCULAR HEMOGLOBIN 29 pg (27-31); MEAN CORPUSCULAR HGB CONC 33 g/dL (33-37); MEAN PLATELET VOLUME 9.5 fl (7.4-10.4); MONO # 0.5 (0.20-0.80); NEU # 4.6 (1.40-6.50); PLATELET COUNT 322 K/mm3 (130-400); RED BLOOD COUNT 4.75 M/mm3 (4.10-5.30); RED CELL DISTRIBUTION WIDTH 13.4 % (11.5-14.5); WHITE BLOOD COUNT 8.1 K/mm3 (4.8-10.8)
[2019-03-22 12:45] LABS: ALBUMIN 3.8 g/dL (3.5-5.0); POTASSIUM 4.1 mmol/L (3.5-5.1); SODIUM 143 mmol/L (136-145)
[2019-03-22 12:46] LABS: CALCIUM 9.7 mg/dL (8.3-10.5)
[2019-03-22 12:48] LABS: GLUCOSE 95 mg/dL (65-105); TOTAL PROTEIN 6.9 g/dL (6.4-8.3)
[2019-03-22 12:49] LABS: CARBON DIOXIDE 27 mmol/L (22-29); TOTAL BILIRUBIN 0.4 mg/dL (0.2-1.2)
[2019-03-22 12:52] LABS: URINE APPEARANCE CLEAR; URINE COLOR YELLOW
[2019-03-22 12:53] LABS: ALCOHOL IN-HOUSE < 10 mg/dL (<10); AST-SGOT 20 U/L (5-34)
[2019-03-22 12:53] LABS: URINE BILIRUBIN NEGATIVE (NEGATIVE); URINE BLOOD NEGATIVE (NEGATIVE); URINE GLUCOSE NEGATIVE (NEGATIVE); URINE KETONE NEGATIVE (NEGATIVE); URINE LEUKOCYTE ESTERASE TRACE (NEGATIVE); URINE MUCUS PRESENT (NOT PRESENT); URINE NITRATE NEGATIVE (NEGATIVE); URINE PROTEIN(semi-quant) NEGATIVE (NEGATIVE); URINE UROBILINOGEN NORMAL (NORMAL)
[2019-03-22 12:54] LABS: ALT/SGPT 22 U/L (0-55)
[2019-03-22 12:55] LABS: ACETAMINOPHEN < 1 ug/mL
[2019-03-23 10:37] VITALS: BP 115/83
== END 2019-03-23 10:46 | disposition home or self-care (01) ==
LOC: ED 12:00
PROVIDERS: Nurse Practitioner Primary Care
DX: R45.851 Suicidal ideations (principal); F31.9 Bipolar disorder, unspecified; E07.9 Disorder of thyroid, unspecified; F43.10 Post-traumatic stress disorder, unspecified; F17.210 Nicotine dependence, cigarettes, uncomplicated; Z79.52 Long term (current) use of systemic steroids

== ENCOUNTER 2019-03-30 00:01 | Emergency (ER) | payer MEDICAID ==
[~2019-03-30] VITALS: Ht 162.6 cm; Wt 113.6 kg
[2019-03-30] MEDS ORDERED: VRAYLAR3 MG PO (00:16)
[2019-03-30] MEDS ORDERED: BUSPAR 15MG TAB15 MG PO (00:16)
[2019-03-30] MEDS ORDERED: PROPYLTHIOURACI50 MG PO (00:17)
[2019-03-30] MEDS ORDERED: DEPAKOTE ER 50500 MG PO (00:17)
[2019-03-30] MEDS ORDERED: ZYRTEC10 M3 PO (00:18)
[2019-03-30 00:55] VITALS: BP 135/82
== END 2019-03-30 00:55 | disposition home or self-care (01) ==
LOC: ED 00:01
DX: M25.571 Pain in right ankle and joints of right foot (principal); F41.9 Anxiety disorder, unspecified; F32.9 Major depressive disorder, single episode, unspecified; K21.9 Gastro-esophageal reflux disease without esophagitis; F17.210 Nicotine dependence, cigarettes, uncomplicated; W18.30XA Fall on same level, unspecified, initial encounter; Y92.009 Unspecified place in unspecified non-institutional (private) residence as the place of occurrence of the external cause

== ENCOUNTER 2019-05-07 22:54 | Emergency (ER) | payer MEDICAID ==
[~2019-05-07 22:54] MED LIST changes: +BUSPAR 15MG TAB15 MG PO; +DEPAKOTE ER 50500 MG PO; +ZYRTEC10 M3 PO
[2019-05-07] MEDS ORDERED: CYPROHEPTADINE H4 M1 PO (23:06)
[2019-05-08] MEDS ORDERED: KETOROLAC10 MG PO (00:35)
[2019-05-08] MEDS ORDERED: NORCO 325 MG-51 TA1 PO (00:35)
[2019-05-08 00:45] VITALS: BP 131/86
== END 2019-05-08 00:45 | disposition home or self-care (01) ==
LOC: ED 22:54
DX: M25.561 Pain in right knee (principal); E03.9 Hypothyroidism, unspecified; Z98.890 Other specified postprocedural states; W19.XXXA Unspecified fall, initial encounter; Y92.009 Unspecified place in unspecified non-institutional (private) residence as the place of occurrence of the external cause
CPT/HCPCS: L1830

== ENCOUNTER 2019-05-28 11:55 | Emergency (ER) | payer MEDICAID ==
[~2019-05-28] VITALS: Ht 162.6 cm; Wt 127.3 kg
[~2019-05-28 11:55] MED LIST changes: +CYPROHEPTADINE H4 M1 PO
[2019-05-28] MEDS ORDERED: CYPROHEPTADINE H4 M1 PO (12:19)
[2019-05-28 12:39] LABS: BASO # 0.1 (0.02-0.10); EOS # 0.5 (0.04-0.40); HEMOGLOBIN 13.7 g/dL (12.5-16.0); LYMPH# 3.1 (1.50-4.00); MEAN CELL VOLUME 90 fl (78-100); MEAN CORPUSCULAR HEMOGLOBIN 29 pg (27-31); MEAN CORPUSCULAR HGB CONC 32 g/dL (33-37); MEAN PLATELET VOLUME 9.2 fl (7.4-10.4); MONO # 0.6 (0.20-0.80); NEU # 6.5 (1.40-6.50); PLATELET COUNT 392 K/mm3 (130-400); WHITE BLOOD COUNT 10.8 K/mm3 (4.8-10.8)
[2019-05-28 12:52] LABS: POTASSIUM 3.8 mmol/L (3.5-5.1); SODIUM 141 mmol/L (136-145)
[2019-05-28 12:53] LABS: CALCIUM 9.8 mg/dL (8.3-10.5)
[2019-05-28 12:54] LABS: GLUCOSE 97 mg/dL (65-105); TOTAL PROTEIN 7.1 g/dL (6.4-8.3)
[2019-05-28 12:55] LABS: CARBON DIOXIDE 23 mmol/L (22-29)
[2019-05-28 12:56] LABS: TOTAL BILIRUBIN 0.4 mg/dL (0.2-1.2)
[2019-05-28 12:59] LABS: AST-SGOT 14 U/L (5-34)
[2019-05-28 13:01] LABS: ALT/SGPT 24 U/L (0-55)
[2019-05-28 13:04] LABS: ACETAMINOPHEN < 1 ug/mL; ALCOHOL IN-HOUSE < 10 mg/dL (<10)
[2019-05-28 13:43] LABS: PH-URINE 5.5 (5.0 - 8.0); URINE APPEARANCE CLOUDY; URINE COLOR YELLOW
[2019-05-28 13:44] LABS: URINE BILIRUBIN NEGATIVE (NEGATIVE); URINE BLOOD TRACE (NEGATIVE); URINE GLUCOSE NEGATIVE (NEGATIVE); URINE KETONE NEGATIVE (NEGATIVE); URINE LEUKOCYTE ESTERASE 1+ (NEGATIVE); URINE MUCUS PRESENT (NOT PRESENT); URINE NITRATE NEGATIVE (NEGATIVE); URINE PROTEIN(semi-quant) NEGATIVE (NEGATIVE); URINE UROBILINOGEN NORMAL (NORMAL)
[2019-05-28] MEDS ORDERED: PROPYLTHIOURACI50 M1 PO (14:07)
[2019-05-28] MEDS ORDERED: BUSPAR 15MG TAB15 MG PO (14:07)
[2019-05-28] MEDS ORDERED: DIVALPROEX SOD500 MG PO (14:07)
[2019-05-28] MEDS ORDERED: VRAYLAR3 MG PO (14:07)
[2019-05-28 14:25] VITALS: BP 119/77
== END 2019-05-28 14:25 | disposition home or self-care (01) ==
LOC: ED 11:55
PROVIDERS: Nurse Practitioner Primary Care
DX: F32.9 Major depressive disorder, single episode, unspecified (principal); E03.9 Hypothyroidism, unspecified; F43.10 Post-traumatic stress disorder, unspecified; E05.00 Thyrotoxicosis with diffuse goiter without thyrotoxic crisis or storm; F17.210 Nicotine dependence, cigarettes, uncomplicated

== ENCOUNTER 2019-06-04 06:38 | Emergency (ER) | payer MEDICAID ==
[~2019-06-04] VITALS: Ht 157.5 cm; Wt 109.1 kg
[~2019-06-04 06:38] MED LIST changes: +DIVALPROEX SOD500 MG PO
[2019-06-04 06:44] VITALS: BP 142/89
== END 2019-06-04 10:09 | disposition home or self-care (01) ==
LOC: ED 06:38
DX: S63.501A Unspecified sprain of right wrist, initial encounter (principal); M25.561 Pain in right knee; F17.210 Nicotine dependence, cigarettes, uncomplicated; Z98.890 Other specified postprocedural states; W18.30XA Fall on same level, unspecified, initial encounter; Y92.009 Unspecified place in unspecified non-institutional (private) residence as the place of occurrence of the external cause

== ENCOUNTER 2019-06-04 12:03 | Emergency (ER) | payer MEDICAID ==
[2019-06-04 12:06] VITALS: BP 147/88
[2019-06-17] MEDS ORDERED: CRUTCH1 EACH MC (08:34)
== END 2019-06-04 12:22 | disposition home or self-care (01) ==
LOC: ED 12:03
DX: R45.851 Suicidal ideations (principal); F17.210 Nicotine dependence, cigarettes, uncomplicated; Z98.890 Other specified postprocedural states

== ENCOUNTER 2019-06-09 21:21 | Emergency (ER) | payer MEDICAID ==
[2019-06-09] MEDS ORDERED: CARAFATE 1GM1 G PO (22:31)
[2019-06-09 22:36] VITALS: BP 137/74
== END 2019-06-09 22:36 | disposition home or self-care (01) ==
LOC: ED 21:21
DX: K25.9 Gastric ulcer, unspecified as acute or chronic, without hemorrhage or perforation (principal); M25.561 Pain in right knee; F31.9 Bipolar disorder, unspecified; Z90.89 Acquired absence of other organs

== ENCOUNTER 2019-06-19 16:14 | Emergency (ER) | payer MEDICAID ==
[~2019-06-19] VITALS: Wt 112.0 kg
[~2019-06-19 16:14] MED LIST changes: +CARAFATE 1GM1 G PO; +CRUTCH1 EACH MC
[2019-06-19] MEDS ORDERED: CYPROHEPTADINE H4 M1 PO (16:27)
[2019-06-19] MEDS ORDERED: ZYRTEC10 M3 PO (16:27)
[2019-06-19] MEDS ORDERED: PROTONIX TR40 M1 PO (16:29)
[2019-06-19] MEDS ORDERED: PROPYLTHIOURACI50 M1 PO (16:29)
[2019-06-19 17:35] VITALS: BP 125/77
== END 2019-06-19 17:35 | disposition home or self-care (01) ==
LOC: ED 16:14
DX: M25.561 Pain in right knee (principal); H65.93 Unspecified nonsuppurative otitis media, bilateral; K21.9 Gastro-esophageal reflux disease without esophagitis; F31.9 Bipolar disorder, unspecified; F43.10 Post-traumatic stress disorder, unspecified; E05.00 Thyrotoxicosis with diffuse goiter without thyrotoxic crisis or storm; F17.210 Nicotine dependence, cigarettes, uncomplicated; Z91.5 Personal history of self-harm; Z98.890 Other specified postprocedural states
CPT/HCPCS: 15976; L1830

== ENCOUNTER 2019-06-21 21:10 | Emergency (ER) | payer MEDICAID ==
[2019-06-21 21:38] LABS: EOS # 0.4 (0.04-0.40); EOS % 3.3 % (1.0-5.0); HEMATOCRIT 40.7 % (37.0-47.0); HEMOGLOBIN 13.4 g/dL (12.5-16.0); LYMPH# 3.6 (1.50-4.00); MEAN CELL VOLUME 88 fl (78-100); MEAN CORPUSCULAR HEMOGLOBIN 29 pg (27-31); MEAN CORPUSCULAR HGB CONC 33 g/dL (33-37); MEAN PLATELET VOLUME 9.2 fl (7.4-10.4); MONO # 0.7 (0.20-0.80); NEU # 6.9 (1.40-6.50); PLATELET COUNT 394 K/mm3 (130-400); RED BLOOD COUNT 4.61 M/mm3 (4.10-5.30); WHITE BLOOD COUNT 11.6 K/mm3 (4.8-10.8)
[2019-06-21 21:48] LABS: ALBUMIN 3.9 g/dL (3.5-5.0); POTASSIUM 3.5 mmol/L (3.5-5.1)
[2019-06-21 21:49] LABS: CALCIUM 9.6 mg/dL (8.3-10.5)
[2019-06-21 21:51] LABS: TOTAL PROTEIN 6.8 g/dL (6.4-8.3)
[2019-06-21 21:52] LABS: TOTAL BILIRUBIN 0.3 mg/dL (0.2-1.2)
[2019-06-21 22:07] VITALS: BP 137/92
== END 2019-06-21 22:20 | disposition left against medical advice (07) ==
LOC: ED 21:10
PROVIDERS: Nurse Practitioner
DX: K62.5 Hemorrhage of anus and rectum (principal); R05 Cough; F41.9 Anxiety disorder, unspecified; F31.9 Bipolar disorder, unspecified; F43.10 Post-traumatic stress disorder, unspecified; K21.9 Gastro-esophageal reflux disease without esophagitis; E05.00 Thyrotoxicosis with diffuse goiter without thyrotoxic crisis or storm; F29 Unspecified psychosis not due to a substance or known physiological condition; F60.3 Borderline personality disorder; F17.210 Nicotine dependence, cigarettes, uncomplicated; Z90.49 Acquired absence of other specified parts of digestive tract; Z98.890 Other specified postprocedural states

== ENCOUNTER 2019-07-03 15:25 | Emergency (ER) | payer MEDICAID ==
[2019-07-03] MEDS ORDERED: PREDNISOLONE ACE5 M1 OS (15:35)
[2019-07-03] MEDS ORDERED: DOXYCYCLINE MO100 M3 PO (15:36)
[2019-07-03] MEDS ORDERED: METRONIDAZOLE500 M1 PO (15:36)
[2019-07-03] MEDS ORDERED: KETOROLAC10 MG PO (16:27)
[2019-07-03 16:44] VITALS: BP 131/86
[2019-07-08] MEDS ORDERED: PREDNISONE20 MG PO (17:34)
== END 2019-07-03 16:44 | disposition home or self-care (01) ==
LOC: ED 15:25
DX: S02.5XXA Fracture of tooth (traumatic), initial encounter for closed fracture (principal); E05.90 Thyrotoxicosis, unspecified without thyrotoxic crisis or storm; K21.9 Gastro-esophageal reflux disease without esophagitis; Z79.52 Long term (current) use of systemic steroids; W19.XXXA Unspecified fall, initial encounter

== ENCOUNTER 2019-07-15 17:34 | Emergency (ER) | payer MEDICAID ==
[~2019-07-15 17:34] MED LIST changes: +PREDNISOLONE ACE5 M1 OS
[2019-07-15 18:01] VITALS: BP 130/88
[2019-07-15 18:21] LABS: BASO # 0.1 (0.02-0.10); EOS # 0.3 (0.04-0.40); EOS % 2.8 % (1.0-5.0); HEMATOCRIT 44.3 % (37.0-47.0); HEMOGLOBIN 14.6 g/dL (12.5-16.0); LYMPH# 3.3 (1.50-4.00); MEAN CELL VOLUME 88 fl (78-100); MEAN CORPUSCULAR HEMOGLOBIN 29 pg (27-31); MEAN CORPUSCULAR HGB CONC 33 g/dL (33-37); MEAN PLATELET VOLUME 9.2 fl (7.4-10.4); MONO # 0.7 (0.20-0.80); NEU # 7.2 (1.40-6.50); PLATELET COUNT 413 K/mm3 (130-400); RED BLOOD COUNT 5.05 M/mm3 (4.10-5.30); RED CELL DISTRIBUTION WIDTH 13.3 % (11.5-14.5); WHITE BLOOD COUNT 11.6 K/mm3 (4.8-10.8)
[2019-07-15 18:30] LABS: POTASSIUM 4.3 mmol/L (3.5-5.1); SODIUM 141 mmol/L (136-145)
[2019-07-15 18:31] LABS: CALCIUM 9.7 mg/dL (8.3-10.5)
[2019-07-15 18:33] LABS: GLUCOSE 94 mg/dL (65-105); TOTAL PROTEIN 7.3 g/dL (6.4-8.3)
[2019-07-15 18:34] LABS: CARBON DIOXIDE 24 mmol/L (22-29); TOTAL BILIRUBIN 0.2 mg/dL (0.2-1.2)
[2019-07-15 18:38] LABS: AST-SGOT 18 U/L (5-34)
[2019-07-15 18:39] LABS: ALCOHOL IN-HOUSE < 10 mg/dL (<10); ALT/SGPT 19 U/L (0-55)
[2019-07-15 19:01] LABS: ACETAMINOPHEN < 1 ug/mL
== END 2019-07-15 19:20 | disposition other institution (70) ==
LOC: ED 17:34
PROVIDERS: Nurse Practitioner Family
DX: R45.851 Suicidal ideations (principal); F31.9 Bipolar disorder, unspecified; F41.9 Anxiety disorder, unspecified; F60.3 Borderline personality disorder; F43.10 Post-traumatic stress disorder, unspecified; E05.00 Thyrotoxicosis with diffuse goiter without thyrotoxic crisis or storm; Z87.891 Personal history of nicotine dependence; Z91.5 Personal history of self-harm; Z98.890 Other specified postprocedural states

== ENCOUNTER 2019-07-19 17:47 | Emergency (ER) | payer MEDICAID ==
[2019-07-19 19:27] VITALS: BP 165/78
== END 2019-07-19 19:27 | disposition home or self-care (01) ==
LOC: ED 17:47
DX: M25.532 Pain in left wrist (principal); W18.30XA Fall on same level, unspecified, initial encounter

== ENCOUNTER 2019-08-10 21:31 | Emergency (ER) | payer MEDICAID ==
[2019-08-10 22:30] LABS: EOS # 0.5 (0.04-0.40); EOS % 3.7 % (1.0-5.0); HEMATOCRIT 44.2 % (37.0-47.0); HEMOGLOBIN 14.6 g/dL (12.5-16.0); LYMPH# 3.9 (1.50-4.00); MEAN CELL VOLUME 87 fl (78-100); MEAN CORPUSCULAR HEMOGLOBIN 29 pg (27-31); MEAN CORPUSCULAR HGB CONC 33 g/dL (33-37); MEAN PLATELET VOLUME 9.4 fl (7.4-10.4); MONO # 0.8 (0.20-0.80); NEU # 8.1 (1.40-6.50); PLATELET COUNT 380 K/mm3 (130-400); RED BLOOD COUNT 5.08 M/mm3 (4.10-5.30); RED CELL DISTRIBUTION WIDTH 13.2 % (11.5-14.5); WHITE BLOOD COUNT 13.3 K/mm3 (4.8-10.8)
[2019-08-10 22:39] LABS: ALBUMIN 4.2 g/dL (3.5-5.0); POTASSIUM 3.8 mmol/L (3.5-5.1)
[2019-08-10 22:42] LABS: TOTAL PROTEIN 7.5 g/dL (6.4-8.3)
[2019-08-10 22:43] LABS: TOTAL BILIRUBIN 0.2 mg/dL (0.2-1.2)
[2019-08-10 22:48] LABS: URINE APPEARANCE HAZY; URINE BILIRUBIN NEGATIVE (NEGATIVE); URINE BLOOD TRACE (NEGATIVE); URINE COLOR YELLOW; URINE GLUCOSE NEGATIVE (NEGATIVE); URINE KETONE NEGATIVE (NEGATIVE); URINE LEUKOCYTE ESTERASE NEGATIVE (NEGATIVE); URINE NITRATE NEGATIVE (NEGATIVE); URINE PROTEIN(semi-quant) TRACE mg/dL (NEGATIVE); URINE UROBILINOGEN NORMAL (NORMAL)
[2019-08-11] MEDS ORDERED: ONDANSETRON ODT8 MG PO (00:45)
[2019-08-11 00:48] LABS: CLUE CELLS PRESENT (Not Observd)
[2019-08-11 00:49] VITALS: BP 128/81
[2019-08-11] MEDS ORDERED: FLAGYL500 M1 PO (00:55)
[2019-08-11] MEDS ORDERED: CYPROHEPTADINE H4 M1 PO (15:18)
[2019-08-11] MEDS ORDERED: KLONOPIN 0.5MG0.5 MG PO (15:19)
[2019-08-11] MEDS ORDERED: CETIRIZINE HCL10 MG PO (15:19)
[2019-08-11] MEDS ORDERED: BRIVIACT50 MG PO (15:19)
[2019-08-11] MEDS ORDERED: PROPYLTHIOURACI50 M1 PO (15:20)
[2019-08-12 11:58] LABS: GRAM STAIN AMS
== END 2019-08-11 00:50 | disposition home or self-care (01) ==
LOC: ED 21:31
PROVIDERS: Nurse Practitioner Family
DX: N76.0 Acute vaginitis (principal); F43.10 Post-traumatic stress disorder, unspecified; F31.9 Bipolar disorder, unspecified; F41.9 Anxiety disorder, unspecified; F17.210 Nicotine dependence, cigarettes, uncomplicated; Z90.49 Acquired absence of other specified parts of digestive tract; Z91.5 Personal history of self-harm
CPT/HCPCS: J1885; J2405; J7120; Q0111; Q9967

== ENCOUNTER 2019-08-11 11:15 | Outpatient (RCR) | payer MEDICAID ==
[~2019-08-11 11:15] MED LIST changes: +ONDANSETRON ODT8 MG PO
[2019-08-11] MEDS ORDERED: CYPROHEPTADINE H4 M1 PO (15:18)
[2019-08-11] MEDS ORDERED: BRIVIACT50 MG PO (15:19)
[2019-08-11] MEDS ORDERED: CETIRIZINE HCL10 MG PO (15:19)
[2019-08-11] MEDS ORDERED: KLONOPIN 0.5MG0.5 MG PO (15:19)
[2019-08-11] MEDS ORDERED: PROPYLTHIOURACI50 M1 PO (15:20)
== END 2019-08-12 | disposition still patient (30) ==
LOC: PT
DX: Z98.890 Other specified postprocedural states (principal)

== ENCOUNTER 2019-08-11 15:07 | Emergency (ER) | payer MEDICAID ==
[2019-08-11] MEDS ORDERED: CYPROHEPTADINE H4 M1 PO (15:18)
[2019-08-11] MEDS ORDERED: CETIRIZINE HCL10 MG PO (15:19)
[2019-08-11] MEDS ORDERED: KLONOPIN 0.5MG0.5 MG PO (15:19)
[2019-08-11] MEDS ORDERED: BRIVIACT50 MG PO (15:19)
[2019-08-11] MEDS ORDERED: PROPYLTHIOURACI50 M1 PO (15:20)
[2019-08-11 16:26] LABS: EOS # 0.6 (0.04-0.40); EOS % 5.8 % (1.0-5.0); HEMATOCRIT 41.9 % (37.0-47.0); LYMPH# 2.9 (1.50-4.00); MEAN CELL VOLUME 87 fl (78-100); MEAN CORPUSCULAR HEMOGLOBIN 29 pg (27-31); MEAN CORPUSCULAR HGB CONC 33 g/dL (33-37); MEAN PLATELET VOLUME 9.4 fl (7.4-10.4); MONO # 0.6 (0.20-0.80); NEU # 6.2 (1.40-6.50); PLATELET COUNT 355 K/mm3 (130-400); RED BLOOD COUNT 4.84 M/mm3 (4.10-5.30); RED CELL DISTRIBUTION WIDTH 13.3 % (11.5-14.5); WHITE BLOOD COUNT 10.3 K/mm3 (4.8-10.8)
[2019-08-11 16:34] LABS: POTASSIUM 3.8 mmol/L (3.5-5.1)
[2019-08-11 16:35] LABS: CALCIUM 9.3 mg/dL (8.3-10.5)
[2019-08-11 16:38] LABS: TOTAL BILIRUBIN 0.4 mg/dL (0.2-1.2)
[2019-08-11 17:13] VITALS: BP 120/78
== END 2019-08-11 17:15 | disposition home or self-care (01) ==
LOC: ED 15:07
PROVIDERS: Physician Assistant
DX: N76.0 Acute vaginitis (principal); E86.0 Dehydration; F31.9 Bipolar disorder, unspecified; F41.9 Anxiety disorder, unspecified; F43.10 Post-traumatic stress disorder, unspecified; F17.210 Nicotine dependence, cigarettes, uncomplicated; Z90.49 Acquired absence of other specified parts of digestive tract; Z91.5 Personal history of self-harm
CPT/HCPCS: J2405; J7030; Q9967

== ENCOUNTER 2019-09-03 10:45 | Outpatient (RCR) | payer MEDICAID ==
[~2019-09-03 10:45] MED LIST changes: +BRIVIACT50 MG PO; +KLONOPIN 0.5MG0.5 MG PO
== END 2019-09-03 11:15 | disposition still patient (30) ==
LOC: OT 10:45
DX: S63.502A Unspecified sprain of left wrist, initial encounter (principal)

== ENCOUNTER 2019-09-03 11:15 | Outpatient (RCR) | payer MEDICAID | END 2019-09-03 12:00 | disposition still patient (30) | LOC: PT 11:15 | DX: M25.561 Pain in right knee (principal); Z98.890 Other specified postprocedural states ==

== ENCOUNTER 2019-09-08 10:28 | Emergency (ER) | payer MEDICAID ==
[~2019-09-08] VITALS: Ht 157.5 cm; Wt 115.5 kg
[2019-09-08 10:30] VITALS: BP 122/103
[2019-09-08] MEDS ORDERED: CORTISPORIN EY7.5 ML OP (10:50)
[2019-09-08] MEDS ORDERED: IBU800 M1 PO (10:50)
[2019-09-08] MEDS ORDERED: NORCO 325 MG-51 TA1 PO (11:10)
[2019-09-08] MEDS ORDERED: CLINDAMYCIN 300MG PO (11:10)
== END 2019-09-08 11:17 | disposition home or self-care (01) ==
LOC: ED 10:28
DX: K08.89 Other specified disorders of teeth and supporting structures (principal); K21.9 Gastro-esophageal reflux disease without esophagitis; F17.210 Nicotine dependence, cigarettes, uncomplicated; Z79.1 Long term (current) use of non-steroidal anti-inflammatories (NSAID)

== ENCOUNTER 2019-09-12 19:55 | Emergency (ER) | payer MEDICAID ==
[~2019-09-12] VITALS: Ht 160 cm; Wt 113.6 kg
[~2019-09-12 19:55] MED LIST changes: +CLINDAMYCIN 300MG PO; +CORTISPORIN EY7.5 ML OP
[2019-09-12] MEDS ORDERED: NORCO 325 MG-51 TA1 PO (21:55)
[2019-09-12 22:27] VITALS: BP 130/83
== END 2019-09-12 22:27 | disposition home or self-care (01) ==
LOC: ED 19:55
DX: K08.89 Other specified disorders of teeth and supporting structures (principal); M26.621 Arthralgia of right temporomandibular joint; E03.9 Hypothyroidism, unspecified; Z79.1 Long term (current) use of non-steroidal anti-inflammatories (NSAID)
CPT/HCPCS: J1885

== ENCOUNTER 2019-11-18 19:22 | Emergency (ER) | payer MEDICAID ==
[~2019-11-18 19:22] MED LIST changes: +AMOXICILLIN 50500 MG PO; +DESYREL50 MG PO; +DIGOXIN125 MCG PO; +PALIPERIDONE ER3 MG PO; +PANTOPRAZOLE SO40 MG PO
[2019-11-18] MEDS ORDERED: DESYREL 100MG100 MG PO (19:38)
[2019-11-18] MEDS ORDERED: PALIPERIDONE ER6 MG PO (19:38)
[2019-11-18 21:23] LABS: URINE APPEARANCE CLOUDY; URINE BILIRUBIN NEGATIVE (NEGATIVE); URINE BLOOD NEGATIVE (NEGATIVE); URINE COLOR YELLOW; URINE GLUCOSE NEGATIVE (NEGATIVE); URINE KETONE NEGATIVE (NEGATIVE); URINE LEUKOCYTE ESTERASE TRACE (NEGATIVE); URINE NITRATE NEGATIVE (NEGATIVE); URINE PROTEIN(semi-quant) NEGATIVE (NEGATIVE); URINE UROBILINOGEN NORMAL (NORMAL)
[2019-11-18] MEDS ORDERED: CLEOCIN VAGINAL40 GM VG (21:34)
[2019-11-18 21:55] VITALS: BP 121/85
== END 2019-11-18 21:55 | disposition home or self-care (01) ==
LOC: ED 19:22
PROVIDERS: Nurse Practitioner Family
DX: N76.0 Acute vaginitis (principal); R33.9 Retention of urine, unspecified; J45.909 Unspecified asthma, uncomplicated; F17.210 Nicotine dependence, cigarettes, uncomplicated

== ENCOUNTER 2019-12-04 21:10 | Emergency (ER) | payer MEDICAID ==
[~2019-12-04 21:10] MED LIST changes: +CLEOCIN VAGINAL40 GM VG; +PALIPERIDONE ER6 MG PO
[2019-12-04 21:54] LABS: EOS # 0.3 (0.04-0.40); EOS % 2.6 % (1.0-5.0); HEMATOCRIT 39.6 % (37.0-47.0); HEMOGLOBIN 13.4 g/dL (12.5-16.0); LYMPH# 3.7 (1.50-4.00); MEAN CELL VOLUME 87 fl (78-100); MEAN CORPUSCULAR HEMOGLOBIN 30 pg (27-31); MEAN CORPUSCULAR HGB CONC 34 g/dL (33-37); MEAN PLATELET VOLUME 9.1 fl (7.4-10.4); MONO # 0.7 (0.20-0.80); NEU # 7.3 (1.40-6.50); PLATELET COUNT 376 K/mm3 (130-400); RED BLOOD COUNT 4.55 M/mm3 (4.10-5.30); WHITE BLOOD COUNT 12.1 K/mm3 (4.8-10.8)
[2019-12-04 23:22] VITALS: BP 141/86
== END 2019-12-04 23:22 | disposition home or self-care (01) ==
LOC: ED 21:10
PROVIDERS: Family Medicine
DX: B34.9 Viral infection, unspecified (principal); F17.210 Nicotine dependence, cigarettes, uncomplicated; Z90.49 Acquired absence of other specified parts of digestive tract

== ENCOUNTER 2020-01-04 12:00 | Emergency (ER) | payer MEDICAID ==
[~2020-01-04] VITALS: Wt 119.1 kg
[2020-01-04 12:34] LABS: EOS # 0.5 (0.04-0.40); HEMATOCRIT 42.5 % (37.0-47.0); HEMOGLOBIN 14.1 g/dL (12.5-16.0); LYMPH# 3.2 (1.50-4.00); MEAN CELL VOLUME 87 fl (78-100); MEAN CORPUSCULAR HEMOGLOBIN 29 pg (27-31); MEAN CORPUSCULAR HGB CONC 33 g/dL (33-37); MEAN PLATELET VOLUME 9.4 fl (7.4-10.4); MONO # 0.5 (0.20-0.80); NEU # 5.5 (1.40-6.50); PLATELET COUNT 334 K/mm3 (130-400); RED BLOOD COUNT 4.86 M/mm3 (4.10-5.30); WHITE BLOOD COUNT 9.7 K/mm3 (4.8-10.8)
[2020-01-04 12:37] LABS: ALBUMIN 3.9 g/dL (3.5-5.0); POTASSIUM 3.9 mmol/L (3.5-5.1); SODIUM 140 mmol/L (136-145)
[2020-01-04 12:39] LABS: CALCIUM 9.6 mg/dL (8.3-10.5)
[2020-01-04 12:40] LABS: GLUCOSE 109 mg/dL (65-105); TOTAL PROTEIN 7.1 g/dL (6.4-8.3)
[2020-01-04 12:41] LABS: CARBON DIOXIDE 22 mmol/L (22-29)
[2020-01-04 12:42] LABS: TOTAL BILIRUBIN 0.3 mg/dL (0.2-1.2)
[2020-01-04 12:45] LABS: AST-SGOT 20 U/L (5-34)
[2020-01-04 12:46] LABS: ALT/SGPT 23 U/L (0-55)
[2020-01-04 12:54] LABS: TROPONIN-I < 0.03 ng/mL (<0.030)
[2020-01-04 13:52] VITALS: BP 108/62
== END 2020-01-04 13:50 | disposition home or self-care (01) ==
LOC: ED 12:00
PROVIDERS: Nurse Practitioner Family
DX: R07.89 Other chest pain (principal); R00.2 Palpitations; J45.909 Unspecified asthma, uncomplicated; E03.9 Hypothyroidism, unspecified; F17.210 Nicotine dependence, cigarettes, uncomplicated; Z91.5 Personal history of self-harm
CPT/HCPCS: J1885; J2405

== ENCOUNTER 2020-01-07 21:45 | Emergency (ER) | payer MEDICAID ==
[2020-01-08 00:54] VITALS: BP 121/71
== END 2020-01-08 01:00 | disposition home or self-care (01) ==
LOC: ED 21:45
DX: F41.9 Anxiety disorder, unspecified (principal); R00.0 Tachycardia, unspecified
CPT/HCPCS: J2060

== ENCOUNTER 2020-01-11 11:00 | Outpatient (RCR) | payer MEDICAID | END 2020-01-11 11:30 | disposition home or self-care (01) | LOC: PT 11:00 | DX: Z47.89 Encounter for other orthopedic aftercare (principal); Z98.890 Other specified postprocedural states ==

== ENCOUNTER 2020-02-15 22:37 | Emergency (ER) | payer MEDICAID ==
[~2020-02-15] VITALS: Ht 157.5 cm; Wt 113.6 kg
[2020-02-15] MEDS ORDERED: TARINA FE 1-201 EACH PO (23:11)
[2020-02-15] MEDS ORDERED: CORLANOR5 MG PO (23:11)
[2020-02-16 00:23] LABS: URINE APPEARANCE HAZY; URINE BILIRUBIN NEGATIVE (NEGATIVE); URINE BLOOD 250 ery/uL (NEGATIVE); URINE COLOR YELLOW; URINE GLUCOSE NEGATIVE (NEGATIVE); URINE KETONE NEGATIVE (NEGATIVE); URINE NITRATE NEGATIVE (NEGATIVE); URINE PROTEIN(semi-quant) TRACE mg/dL (NEGATIVE); URINE UROBILINOGEN NORMAL (NORMAL)
[2020-02-16 00:24] LABS: URINE LEUKOCYTE ESTERASE TRACE (NEGATIVE); URINE MUCUS PRESENT (NOT PRESENT)
[2020-02-16 00:45] VITALS: BP 104/54
== END 2020-02-16 00:45 | disposition home or self-care (01) ==
LOC: ED 22:37
PROVIDERS: Nurse Practitioner Family
DX: R33.9 Retention of urine, unspecified (principal); A59.9 Trichomoniasis, unspecified; F17.210 Nicotine dependence, cigarettes, uncomplicated; Z91.14 Patient's other noncompliance with medication regimen

== ENCOUNTER → 2020-02-29 | Outpatient (CLI) | payer MEDICAID ==
[2020-02-16 00:45] VITALS: BP 104/54
[~2020-02-29] MED LIST changes: +CORLANOR5 MG PO; +TARINA FE 1-201 EACH PO
[2020-02-29 11:13] LABS: EOS # 0.4 (0.04-0.40); EOS % 3.9 % (1.0-5.0); HEMATOCRIT 42.1 % (37.0-47.0); HEMOGLOBIN 13.9 g/dL (12.5-16.0); LYMPH# 3.6 (1.50-4.00); MEAN CELL VOLUME 88 fl (78-100); MEAN CORPUSCULAR HEMOGLOBIN 29 pg (27-31); MEAN CORPUSCULAR HGB CONC 33 g/dL (33-37); MEAN PLATELET VOLUME 8.9 fl (7.4-10.4); MONO # 0.8 (0.20-0.80); NEU # 5.5 (1.40-6.50); PLATELET COUNT 383 K/mm3 (130-400); RED BLOOD COUNT 4.76 M/mm3 (4.10-5.30); WHITE BLOOD COUNT 10.4 K/mm3 (4.8-10.8)
== END ==
LOC: RAD 11:02
PROVIDERS: Physician Assistant
DX: R06.02 Shortness of breath (principal); R10.9 Unspecified abdominal pain; Z90.49 Acquired absence of other specified parts of digestive tract
CPT/HCPCS: Q9967

== ENCOUNTER → 2020-03-22 | Outpatient (CLI) | payer MEDICAID ==
[2020-04-05 10:12] LABS: ASPERGILLUS FLAVUS NEG; ASPERGILLUS FUMIGATUS NEG; ASPERGILLUS NIGER NEG
== END ==
LOC: LAB 16:27
PROVIDERS: Physician Assistant
DX: R76.8 Other specified abnormal immunological findings in serum (principal)

== ENCOUNTER 2021-06-10 08:14 | Emergency (ER) | payer MEDICAID ==
[2021-06-10 09:35] VITALS: BP 135/75
== END 2021-06-10 09:30 | disposition home or self-care (01) ==
LOC: ED 08:14
DX: S80.11XA Contusion of right lower leg, initial encounter (principal); E05.90 Thyrotoxicosis, unspecified without thyrotoxic crisis or storm; F17.200 Nicotine dependence, unspecified, uncomplicated; Z96.652 Presence of left artificial knee joint; W20.8XXA Other cause of strike by thrown, projected or falling object, initial encounter

== ENCOUNTER 2021-09-28 13:21 | Emergency (ER) | payer MEDICAID ==
[~2021-09-28] VITALS: Ht 160 cm; Wt 104.4 kg
[2021-09-28 15:42] VITALS: BP 133/84
== END 2021-09-28 15:46 | disposition home or self-care (01) ==
LOC: ED 13:21
DX: S09.90XA Unspecified injury of head, initial encounter (principal); M25.572 Pain in left ankle and joints of left foot; M25.552 Pain in left hip; M79.672 Pain in left foot; F17.210 Nicotine dependence, cigarettes, uncomplicated; W10.8XXA Fall (on) (from) other stairs and steps, initial encounter

== ENCOUNTER 2021-10-23 19:08 | Emergency (ER) | payer MEDICAID ==
[~2021-10-23] VITALS: Ht 165.1 cm; Wt 109.0 kg
[2021-10-23 20:30] LABS: URINE APPEARANCE CLEAR; URINE BILIRUBIN NEGATIVE (NEGATIVE); URINE BLOOD TRACE (NEGATIVE); URINE COLOR YELLOW; URINE GLUCOSE NEGATIVE (NEGATIVE); URINE KETONE NEGATIVE (NEGATIVE); URINE LEUKOCYTE ESTERASE TRACE (NEGATIVE); URINE NITRATE NEGATIVE (NEGATIVE); URINE PROTEIN(semi-quant) NEGATIVE (NEGATIVE); URINE UROBILINOGEN NORMAL (NORMAL)
[2021-10-23 20:48] LABS: BASO # 0.03 K/mm3 (0.02-0.10); HEMOGLOBIN 13.8 g/dL (12.5-16.0); MEAN CELL VOLUME 90 fl (78-100); MEAN CORPUSCULAR HEMOGLOBIN 30 pg (27-31); MEAN CORPUSCULAR HGB CONC 34 g/dL (33-37); MONO # 0.49 K/mm3 (0.20-0.80); NEU # 3.03 K/mm3 (1.40-6.50); PLATELET COUNT 277 K/mm3 (130-400); RED BLOOD COUNT 4.58 M/mm3 (4.10-5.30); WHITE BLOOD COUNT 5.4 K/mm3 (4.8-10.8)
[2021-10-23 20:59] LABS: ALBUMIN 4.2 g/dL (3.5-5.0); POTASSIUM 3.3 mmol/L (3.5-5.1); SODIUM 140 mmol/L (136-145)
[2021-10-23 21:00] LABS: CALCIUM 9.5 mg/dL (8.3-10.5)
[2021-10-23 21:01] LABS: GLUCOSE 88 mg/dL (65-105); TOTAL PROTEIN 7.3 g/dL (6.4-8.3)
[2021-10-23 21:02] LABS: CARBON DIOXIDE 21 mmol/L (22-29)
[2021-10-23 21:03] LABS: TOTAL BILIRUBIN 0.7 mg/dL (0.2-1.2)
[2021-10-23 21:07] LABS: AST-SGOT 22 U/L (5-34)
[2021-10-23 21:08] LABS: ALT/SGPT 17 U/L (0-55)
[2021-10-23 21:11] LABS: ACETAMINOPHEN < 1 ug/mL; ALCOHOL IN-HOUSE < 10 mg/dL (<10)
[2021-10-23 23:57] VITALS: BP 130/78
== END 2021-10-24 00:05 | disposition home or self-care (01) ==
LOC: ED 19:08
PROVIDERS: Physician Assistant
DX: F32.A Depression, unspecified (principal); J11.1 Influenza due to unidentified influenza virus with other respiratory manifestations; R45.851 Suicidal ideations; Z20.822 Contact with and (suspected) exposure to COVID-19

== ENCOUNTER 2022-04-17 12:48 | Outpatient (RCR) | payer MEDICAID | END 2022-05-13 | disposition home or self-care (01) | LOC: PT | DX: M25.561 Pain in right knee (principal) ==

== ENCOUNTER 2022-05-14 08:00 | Outpatient (RCR) | payer MEDICAID ==
[2022-06-05] MEDS ORDERED: FOLIC ACID1 MG PO (15:28)
[2022-06-05] MEDS ORDERED: PRENATAL FORMU1 EAC2 PO (15:28)
[2022-06-05] MEDS ORDERED: SYMBICORT1 AE3 IH (15:28)
[2022-06-05] MEDS ORDERED: PROVENTIL0.09 MG/A1 IH (15:29)
[2022-06-05] MEDS ORDERED: BRIVIACT50 MG PO (15:29)
== END 2022-06-12 | disposition home or self-care (01) ==
LOC: PT
DX: M25.561 Pain in right knee (principal)

== ENCOUNTER → 2022-06-05 | Outpatient (CLI) | payer MEDICAID ==
[~2022-06-05] VITALS: Ht 165.1 cm; Wt 109.0 kg
[~2022-06-05] MED LIST changes: +FOLIC ACID1 MG PO; +PRENATAL FORMU1 EAC2 PO; +PROVENTIL0.09 MG/A1 IH; +SYMBICORT1 AE3 IH
[2022-06-05 15:24] VITALS: BP 113/59
[2022-06-05 16:33] VITALS: BP 124/78
== END ==
LOC: AMSURD 13:19
DX: Z51.81 Encounter for therapeutic drug level monitoring (principal)
CPT/HCPCS: J7120

== ENCOUNTER 2023-05-13 11:25 | Emergency (ER) | payer MEDICAID ==
[~2023-05-13] VITALS: Ht 160 cm; Wt 99.0 kg
[2023-05-13 11:52] VITALS: BP 124/77
== END 2023-05-13 12:26 | disposition home or self-care (01) ==
LOC: ED 11:25
DX: B34.9 Viral infection, unspecified (principal); R50.9 Fever, unspecified; R06.02 Shortness of breath; J45.909 Unspecified asthma, uncomplicated; Z79.899 Other long term (current) drug therapy; Z28.310 Unvaccinated for COVID-19; Z86.16 Personal history of COVID-19; Z20.822 Contact with and (suspected) exposure to COVID-19